=== PATIENT | female | born 1995 | race Caucasian/White ===

== ENCOUNTER 2016-04-23 16:41 | Emergency (ER) | payer SELFPAY ==
[~2016-04-23] VITALS: Ht 162.6 cm; Wt 74.8 kg
--- NOTE | 2016-04-23 18:59 | PHYS DOC ---
Past Medical History Past Medical History: Other Additional Past Medical Histor: hypoglycemic Past Surgical History: Other Additional Past Surgical Histo: right hip, lymph nodes left neck Alcohol Use: None Drug Use: None Adult General Chief Complaint Chief Complaint: VAGINAL BLEEDING HPI HPI Patient is a 20 year old female, 2 para 0 with an unknown last menstrual period, but a positive test approximate 7 weeks ago. Patient had Mirena removed approximately 2 weeks prior to that (9 weeks ago) who presents the emergency room today with complaint of vaginal bleeding for approximately 4 hours. Patient reports passage of some small clots but no evidence of tissue. Patient reports last intercourse was yesterday with no complications. Patient reports that she currently does not have an shot polisher and inspector/ treasury manager. She states that she's had a positive home test. Patient denies pelvic pain or pressure. She denies vaginal discharge. Patient denies history of genitourinary disease or surgeries. She stated that she had a miscarriage approximately 2 years ago without any complications or surgical intervention. Review of Systems Review of Systems Constitutional: Denies fever or chills [] Eyes: Denies change in visual acuity, redness, or eye pain [] HENT: Denies nasal congestion or sore throat [] Respiratory: Denies cough or shortness of breath [] Cardiovascular: No additional information not addressed in HPI [] GI: Denies abdominal pain, nausea, vomiting, bloody stools or diarrhea [] : Denies dysuria or hematuria [] Musculoskeletal: Denies back pain or joint pain [] Integument: Denies rash or skin lesions [] Neurologic: Denies headache, focal weakness or sensory changes [] Endocrine: Denies polyuria or polydipsia [] Current Medications Current Medications Current Medications Medications (Trade) Dose Ordered Sig/Shalonda Start Time Stop Time Status Last Admin Dose Admin Ondansetron HCl (Zofran Odt) 4 mg 1X ONCE 04/23/16 20:45 04/23/16 20:46 DC 04/23/16 20:34 4 MG Sodium Chloride (Iv Sodium Chloride 0.9% 500ml Bag) 500 ml @ 500 mls/hr 1X ONCE 04/23/16 19:00 04/23/16 19:59 DC 04/23/16 19:00 500 MLS/HR Allergies Allergies Allergies Coded Allergies Type Severity Reaction Last Updated Verified acetaminophen Allergy Intermediate 12/26/16 Yes codeine Allergy Intermediate 04/17/16 Yes naproxen Allergy Intermediate 04/17/16 Yes Physical Exam Physical Exam Constitutional: Well developed, well nourished, no acute distress, non-toxic appearance. [] HENT: Normocephalic, atraumatic, bilateral external ears normal, oropharynx moist, no oral exudates, nose normal. [] Eyes: PERRLA, EOMI, conjunctiva normal, no discharge. [] Neck: Normal range of motion, no tenderness, supple, no stridor. [] Cardiovascular:Heart rate regular rhythm, no murmur [] Lungs & Thorax: Bilateral breath sounds clear to auscultation [] Abdomen: Bowel sounds normal, soft, no tenderness, no masses, no pulsatile masses. Pelvic exam was performed with Romy Nuñez RN as electric gas appliances demonstrator and assistant associate professor: External genitalia is without any lesions or abnormalities. There is scant amount of dark blood in the vaginal vault. External os is closed. There are no blood clots or tissue in the vaginal vault. There is no active bleeding. There is no cervical motion tenderness or palpable adnexal masses or tenderness. Skin: Warm, dry, no erythema, no rash. [] Back: No tenderness, no CVA tenderness. [] Extremities: No tenderness, no cyanosis, no clubbing, ROM intact, no edema. [] Neurologic: Alert and oriented X 3, normal motor function, normal sensory function, no focal deficits noted. [] Psychologic: Affect normal, judgement normal, mood normal. [] Current Patient Data Vital Signs Vital Signs Date Time Temp Pulse Resp B/P Pulse Ox O2 Delivery O2 Flow Rate FiO2 04/23/16 20:41 98.1 76 16 105/60 98 Room Air 98.1 Lab Values Laboratory Tests Test 04/23/16 19:11 White Blood Count 8.2x10^3/uL (4.0-11.0) Red Blood Count 4.26x10^6/uL (3.50-5.40) Hemoglobin 13.4g/dL (12.0-15.5) Hematocrit 39.3% (36.0-47.0) Mean Corpuscular Volume 92fL (79-100) Mean Corpuscular Hemoglobin 31pg (25-35) Mean Corpuscular Hemoglobin Concent 34g/dL (31-37) Red Cell Distribution Width 13.4% (11.5-14.5) Platelet Count 230x10^3/uL (140-400) Neutrophils (%) (Auto) 67% (31-73) Lymphocytes (%) (Auto) 25% (24-48) Monocytes (%) (Auto) 6% (0-9) Eosinophils (%) (Auto) 1% (0-3) Basophils (%) (Auto) 1% (0-3) Neutrophils # (Auto) 5.5x10^3uL (1.8-7.7) Lymphocytes # (Auto) 2.1x10^3/uL (1.0-4.8) Monocytes # (Auto) 0.5x10^3/uL (0.0-1.1) Eosinophils # (Auto) 0.1x10^3/uL (0.0-0.7) Basophils # (Auto) 0.0x10^3/uL (0.0-0.2) Urine Collection Type Unknown Urine Color Yellow Urine Clarity Clear Urine pH 7.0 Urine Specific [place] 1.025 Urine Protein Negativemg/dL (NEG-TRACE) Urine Glucose (UA) Negativemg/dL (NEG) Urine Ketones (Stick) Negativemg/dL (NEG) Urine Blood Small (NEG) Urine Nitrite Negative (NEG) Urine Bilirubin Negative (NEG) Urine Urobilinogen Dipstick 0.2mg/dL (0.2 mg/dL) Urine Leukocyte Esterase Negative (NEG) Urine RBC 0/HPF (0-2) Urine WBC 0/HPF (0-4) Urine Squamous Epithelial Cells Mod/LPF Urine Amorphous Sediment Present/HPF Urine Bacteria 0/HPF (0-FEW) Urine Mucus Mod/LPF Maternal Serum HCG Beta Subunit 31104wIN/mL (0-6) H Laboratory Tests 04/23/16 19:11 Microbiology 04/23/16 Wet Prep - Final, Complete Microbiology 04/23/16 Wet Prep - Final, Complete EKG EKG [] Radiology/Procedures Radiology/Procedures PROCEDURE Ob ultrasound less than 14 weeks to include transabdominal and transvaginal imaging 04/23/2016 HISTORY First trimester of uncertain dates with vaginal bleeding. TECHNIQUE Using the distended urinary bladder as a sonographic window, a real-time ultrasound examination of the pelvis was performed. Additionally in an attempt to better evaluate the uterus and adnexa, a transvaginal ultrasound study was performed. Multiple images were obtained. FINDINGS A gestational sac is seen within the endometrial canal within the fundus/body of the uterus. Within this gestational sac a embryonic pole and associated yolk sac are seen. The CRL of this embryonic pole measures 3.7 millimeters. This corresponds to an estimated gestational age by ultrasound of 6 weeks 0 days +or minus a standard deviation of 4 days. Embryonic cardiac activity is seen with a heart rate of 93 beats per minute. The right ovary is normal in size and echogenicity. It measures 2.6 x 1.5 x 1.3 centimeters in size. The left ovary measures 2.6 x 2.2 x 2.0 centimeters in size. A 2 centimeter oval-shaped predominantly anechoic structure is seen within the left ovary which is consistent with a corpus luteum. No adnexal mass is seen. No free fluid is noted. IMPRESSION Single living IUP with an estimated gestational age by ultrasound of 6 weeks 0 days +or minus a standard deviation of 4 days. The estimated date of delivery by ultrasound is 12/17/2016. Electronically signed by: Chase Serrano MD (Apr 23, 2016 20:12:47) DICTATED and SIGNED BY: CHASE SERRANO MD DATE: 04/23/162011 CC: THADDEUS HO; CLEVELAND CARRIZALES MD ~ [] Course & Med Decision Making Course & Med Decision Making I was informed by Miss Savannah RN that the patient's Rh factor is negative. I called the blood bank and spoke to Doreen. Doreen informed me that she would put in the necessary orders for rhoGam per the blood bank protocol. Patient's blood type is A-. She received Auralgan here in the emergency department. Patient verbalizes understanding of ultrasound and laboratory test findings. She verbalizes understanding of the reason to see the RhoGAM. She verbalizes understanding for need for pelvic rest and to call for appointment with shot polisher and inspector in the morning. Patient verbalizes understanding of reasons to return to the emergency department. Dragon Disclaimer Dragon Disclaimer This electronic medical record was generated, in whole or in part, using a voice recognition dictation system. Departure Departure Impression: Primary Impression: Threatened miscarriage in early Disposition: 01 HOME, SELF-CARE Condition: GOOD Referrals: CLEVELAND CARRIZALES MD (PCP) BETTINA OVERTON MD Patient Instructions: RhoGAM, Threatened Miscarriage, [id number] Additional Instructions: 1. Even though the ultrasound and laboratory test today are reassuring, there is still the possibility of a miscarriage. 2. Read over your discharge instructions, especially for reasons to return to the emergency department. 3. Do not insert anything into your vagina. This includes intercourse. 4. Your blood type is A-. You received RhoGam here in the emergency Department today. 5. Either call the shot polisher and inspector that you're wanting to see or call the shot polisher and inspector listed in this discharge paperwork in the morning to schedule a follow-up appointment THADDEUS HO Apr 23, 2016 18:59
[2016-04-23] MEDS ORDERED: IV NORMAL SALINE 500ML BAG 500 ML IV ONE (19:00)
[2016-04-23 19:27] LABS: BASO % 1 % (0-3); BILIRUBIN,URINE NEGATIVE (NEG); EOS % 1 % (0-3); GLUCOSE,URINE NEGATIVE (NEG); HEMATOCRIT 39.3 % (36.0-47.0); HEMOGLOBIN 13.4 g/dL (12.0-15.5); LYMPH # 2.1 x10^3/uL (1.0-4.8); LYMPH % 25 % (24-48); MEAN CORPUSCULAR HEMOGLOBIN 31 pg (25-35); MEAN CORPUSCULAR HGB CONC 34 g/dL (31-37); MEAN CORPUSCULAR VOLUME 92 fL (79-100); MONO % 6 % (0-9); NEUT % 67 % (31-73); NITRITE,URINE NEGATIVE (NEG); PLATELET COUNT 230 x10^3/uL (140-400); PROTEIN,URINE NEGATIVE (NEG-TRACE); RED BLOOD COUNT 4.26 x10^6/uL (3.50-5.40); RED CELL DISTRIBUTION WIDTH 13.4 % (11.5-14.5); UROBILINOGEN,URINE 0.2 mg/dL (0.2 mg/dL); WHITE BLOOD COUNT 8.2 x10^3/uL (4.0-11.0)
[2016-04-23 19:35] LABS: RBC,URINE 0 /HPF (0-2)
[2016-04-23 19:36] LABS: BACTERIA,URINE 0 /HPF (0-FEW); SQUAMOUS EPITHELIAL CELL,UR MOD /LPF; WBC,URINE 0 /HPF (0-4)
--- NOTE | 2016-04-23 20:14 | RAD ---
PROCEDURE Ob ultrasound less than 14 weeks to include transabdominal and transvaginal imaging 04/23/2016 HISTORY First trimester of uncertain dates with vaginal bleeding. TECHNIQUE Using the distended urinary bladder as a sonographic window, a real-time ultrasound examination of the pelvis was performed. Additionally in an attempt to better evaluate the uterus and adnexa, a transvaginal ultrasound study was performed. Multiple images were obtained. FINDINGS A gestational sac is seen within the endometrial canal within the fundus/body of the uterus. Within this gestational sac a embryonic pole and associated yolk sac are seen. The CRL of this embryonic pole measures 3.7 millimeters. This corresponds to an estimated gestational age by ultrasound of 6 weeks 0 days +or minus a standard deviation of 4 days. Embryonic cardiac activity is seen with a heart rate of 93 beats per minute. The right ovary is normal in size and echogenicity. It measures 2.6 x 1.5 x 1.3 centimeters in size. The left ovary measures 2.6 x 2.2 x 2.0 centimeters in size. A 2 centimeter oval-shaped predominantly anechoic structure is seen within the left ovary which is consistent with a corpus luteum. No adnexal mass is seen. No free fluid is noted. IMPRESSION Single living IUP with an estimated gestational age by ultrasound of 6 weeks 0 days +or minus a standard deviation of 4 days. The estimated date of delivery by ultrasound is 12/17/2016. Electronically signed by: Chase Serrano MD (Apr 23, 2016 20:12:47)
[2016-04-23] MEDS ORDERED: ONDANSETRON ODT 4 MG TAB.RAPDIS PO ONE (20:45)
[2016-04-23 21:42] VITALS: BP 105/60
--- NOTE | 2016-04-25 07:54 | VNOTE ---
CALL BACK NOTE CALL BACK Microbiology 04/23/16 Wet Prep - Final, Complete 07:56Patient was positive for BV and not treated, called and left a voicemail 16:13 called her again, left a VM. TC MANCIA APRN Apr 25, 2016 07:53
== END 2016-04-23 22:15 | disposition home or self-care (01) ==
LOC: ER 16:41
DX: O20.0 Threatened abortion (principal); Z3A.01 Less than 8 weeks gestation of pregnancy; Z88.6 Allergy status to analgesic agent
CPT/HCPCS: 36415; 76801; 81001; 84702; 85027; 86850; 86900; 86901; 87491; 87591; 96360; 99285; J2791; J7040; Q0111; Q0162

== ENCOUNTER 2016-06-10 09:36 | Emergency (ER) | payer OTHER ==
[~2016-06-10] VITALS: Ht 162.6 cm; Wt 86.2 kg
--- NOTE | 2016-06-10 10:11 | PHYS DOC ---
Past Medical History Past Medical History: Other Additional Past Medical Histor: hypoglycemic Past Surgical History: Other Additional Past Surgical Histo: right hip, lymph nodes left neck Additional Information: Nonsmoker Alcohol Use: None Drug Use: Marijuana Adult General Chief Complaint Chief Complaint: ABDOMINAL PAIN IN [facility] HPI Patient is a 20 year old female who presents with low back pain. 2 days. Yesterday she began having stabbing pain in the pelvic region. She has had vaginal discharge and urinary frequency without dysuria or hematuria. She's had mild nausea and vomiting daily throughout her . She generally only vomits once in the morning. She denies vaginal bleeding or fevers. The patient was seen here on 04/23/16 and diagnosed with a threatened miscarriage. At that time, she was 6 weeks 0 days on ultrasound. She had pelvic swabs taken during that visit. She was found to have bacterial vaginosis but was not treated. We have attempted to contact her with those results without success. She was sent a certified letter, but states that she has not received the letter. Her mail this to her grandmother, who has been out of this state recently. She has seen her OB doctor. She states that she has not been treated with antibiotics for bacterial vaginosis. Her PCP is Dr. Carrizales. Her OB is Dr. Chao. She is . Review of Systems Review of Systems Constitutional: Denies fever or chills. [] GI: Denies bloody stools or diarrhea. Reports nausea, vomiting, and pelvic pain. : Denies dysuria, hematuria or vaginal bleeding. Reports vaginal discharge, urinary frequency, and pelvic pain. Musculoskeletal: Denies joint pain. Reports low-back pain. Integument: Denies rash or skin lesions. [] Neurologic: Denies headache, focal weakness or sensory changes. [] All systems reviewed and negative unless otherwise stated in the HPI. Allergies Allergies Allergies Coded Allergies Type Severity Reaction Last Updated Verified acetaminophen Allergy Intermediate 04/17/16 Yes codeine Allergy Intermediate 04/17/16 Yes naproxen Allergy Intermediate 04/17/16 Yes Physical Exam Physical Exam Constitutional: Well developed, well nourished, no acute distress, non-toxic appearance. [] HENT: Normocephalic, atraumatic, oropharynx moist. [] Eyes: PERRLA, EOMI, conjunctiva normal, no discharge. [] Neck: Normal range of motion, no tenderness, supple, no stridor. [] Cardiovascular: Heart rate regular rhythm, no murmur. [] Lungs & Thorax: Bilateral breath sounds clear to auscultation without wheezes, rales, or rhonchi. [] Abdomen: Bowel sounds normal, soft, suprapubic tenderness, no masses, no pulsatile masses. [] Female : ED RN jewel bearing turner present during exam. Normal external genitalia. There is white discharge in the vagina. There is no bleeding. There is no cervicitis. There is no CMT or adnexal tenderness on bimanual examination. The cervical os is closed. Skin: Warm, dry, no erythema, no rash. [] Back: No midline tenderness, no CVA tenderness. Bilateral lumbar paraspinal muscle tenderness. Extremities: No tenderness, ROM intact, no edema. Distal pulses equal bilaterally. [] Neurologic: Alert and oriented X 3, normal motor function, normal sensory function, no focal deficits noted. [] Psychologic: Affect normal, judgement normal, mood normal. [] Current Patient Data Vital Signs Vital Signs Date Time Temp Pulse Resp B/P Pulse Ox O2 Delivery O2 Flow Rate FiO2 06/10/16 10:00 98 72 20 111/58 98 Room Air 98.0 Lab Values Laboratory Tests Test 06/10/16 10:03 Urine Collection Type Unknown Urine Color Yellow Urine Clarity Clear Urine pH 7.5 Urine Specific [place] <=1.005 Urine Protein Negativemg/dL (NEG-TRACE) Urine Glucose (UA) Negativemg/dL (NEG) Urine Ketones (Stick) Negativemg/dL (NEG) Urine Blood Negative (NEG) Urine Nitrite Negative (NEG) Urine Bilirubin Negative (NEG) Urine Urobilinogen Dipstick 0.2mg/dL (0.2 mg/dL) Urine Leukocyte Esterase Trace (NEG) Urine RBC Occ/HPF (0-2) Urine WBC Occ/HPF (0-4) Urine Squamous Epithelial Cells Many/LPF Urine Bacteria Few/HPF (0-FEW) Microbiology 06/10/16 Wet Prep - Final, Complete Microbiology 06/10/16 Wet Prep - Final, Complete WET PREP Final YEAST NONE SEEN TRICHOMONAS NONE SEEN CLUE CELLS CLUE CELLS PRESENT ALTERED [place] ALTERED [place] PRESENT SUGGESTIVE OF BACTERIAL VAGINOSIS SQUAMOUS EPS MANY EKG EKG [] Radiology/Procedures Radiology/Procedures REASON: pelvic pain, 13 wks PROCEDURE: OB < 14 WKS Indication with pelvic pain. Early obstetrical ultrasound examination was performed. Note is made of a previous examination April 23, 2016. Transabdominal images were obtained. There is a single, viable, IUP. heart rate of 145 was documented. [place]-rump length of 6.5 cm is compatible with a gestational age of 12 weeks 6 days. By sonographic analysis the expected date of confinement is 12/17/2016. No complication is seen. The amount of amniotic fluid appears normal. A small hemorrhagic cyst is suggested associated with the left ovary IMPRESSION: Single intrauterine fetus of approximately 12 weeks 6 days gestation. Physiologic cyst associated with the left ovary Course & Med Decision Making Course & Med Decision Making Pertinent Labs and Imaging studies reviewed. (See chart for details) Patient is 13 weeks presents with low back pain and pelvic pain with vaginal discharge. She does not have any vaginal bleeding. On exam, there is discharge without bleeding. The os is closed. There are no concerning findings on ultrasound. Wet mount is positive for bacterial vaginosis, which was previously seen but untreated. Urine does not show infection. She is discharged home with prescription for Flagyl. She is instructed to follow-up with her OB doctor. Return precautions were discussed. She verbalizes understanding and agrees with plan. Dragon Disclaimer Dragon Disclaimer This electronic medical record was generated, in whole or in part, using a voice recognition dictation system. Departure Departure Impression: Primary Impression: Bacterial vaginosis Disposition: 01 HOME, SELF-CARE Condition: STABLE Referrals: CLEVELAND CARRIZALES MD (PCP) Patient Instructions: Abdominal Pain During , [id number], Bacterial Vaginosis, [id number] Additional Instructions: Your ultrasound today did not show any abnormalities. Your urine does not show any infection. You still have bacterial vaginosis because it was not treated previously. Please complete all the prescribed antibiotics. Please follow-up with your OB doctor within the next week. Return to the emergency department if you have increasing pain, fever, vaginal bleeding, or other new or concerning symptoms. Scripts Metronidazole (Flagyl)500 Mg Tablet1 Tab PO BID #14 TAB Prov:JOO GA 06/10/16 JOO GA Jun 10, 2016 10:11
--- NOTE | 2016-06-10 11:09 | RAD ---
Indication with pelvic pain. Early obstetrical ultrasound examination was performed. Note is made of a previous examination April 23, 2016. Transabdominal images were obtained. There is a single, viable, IUP. heart rate of 145 was documented. [place]-rump length of 6.5 cm is compatible with a gestational age of 12 weeks 6 days. By sonographic analysis the expected date of confinement is 12/17/2016. No complication is seen. The amount of amniotic fluid appears normal. A small hemorrhagic cyst is suggested associated with the left ovary IMPRESSION: Single intrauterine fetus of approximately 12 weeks 6 days gestation. Physiologic cyst associated with the left ovary
[2016-06-10 11:10] LABS: BILIRUBIN,URINE NEGATIVE (NEG); GLUCOSE,URINE NEGATIVE (NEG); NITRITE,URINE NEGATIVE (NEG); PH,URINE 7.5; PROTEIN,URINE NEGATIVE (NEG-TRACE); UROBILINOGEN,URINE 0.2 mg/dL (0.2 mg/dL)
[2016-06-10 11:36] LABS: BACTERIA,URINE FEW /HPF (0-FEW); RBC,URINE OCC /HPF (0-2); SQUAMOUS EPITHELIAL CELL,UR MANY /LPF; WBC,URINE OCC /HPF (0-4)
[2016-06-10] MEDS ORDERED: METR500T PO (11:49)
== END 2016-06-10 11:59 | disposition home or self-care (01) ==
LOC: ER 09:36
DX: O23.591 Infection of other part of genital tract in pregnancy, first trimester (principal); N76.0 Acute vaginitis; B96.89 Other specified bacterial agents as the cause of diseases classified elsewhere; Z3A.13 13 weeks gestation of pregnancy; O26.891 Other specified pregnancy related conditions, first trimester; F12.10 Cannabis abuse, uncomplicated; Z88.6 Allergy status to analgesic agent; Z88.5 Allergy status to narcotic agent
CPT/HCPCS: 76801; 81001; 87086; 87491; 87591; 99285; Q0111

== ENCOUNTER 2016-07-06 16:13 | Emergency (ER) | payer OTHER ==
[~2016-07-06] VITALS: Ht 162.6 cm; Wt 86.2 kg
[~2016-07-06 16:13] MED LIST: METR500T PO
[2016-07-06] MEDS ORDERED: IV NORMAL SALINE 1000ML BAG 1,000 ML IV SCH (16:48)
[2016-07-06] MEDS ORDERED: METOCLOPRAMIDE HCL 10 MG/2 ML VIAL. IV ONE (17:00)
[2016-07-06 17:04] LABS: BASO % 0 % (0-3); EOS % 3 % (0-3); HEMATOCRIT 40.4 % (36.0-47.0); HEMOGLOBIN 13.8 g/dL (12.0-15.5); LYMPH # 1.6 x10^3/uL (1.0-4.8); LYMPH % 24 % (24-48); MEAN CORPUSCULAR HEMOGLOBIN 31 pg (25-35); MEAN CORPUSCULAR HGB CONC 34 g/dL (31-37); MEAN CORPUSCULAR VOLUME 92 fL (79-100); MONO % 8 % (0-9); NEUT % 66 % (31-73); PLATELET COUNT 198 x10^3/uL (140-400); RED BLOOD COUNT 4.39 x10^6/uL (3.50-5.40); RED CELL DISTRIBUTION WIDTH 13.4 % (11.5-14.5); WHITE BLOOD COUNT 6.7 x10^3/uL (4.0-11.0)
[2016-07-06 17:06] LABS: BILIRUBIN,URINE NEGATIVE (NEG); GLUCOSE,URINE NEGATIVE (NEG); NITRITE,URINE NEGATIVE (NEG); PH,URINE 7.5; PROTEIN,URINE NEGATIVE (NEG-TRACE); UROBILINOGEN,URINE 0.2 mg/dL (0.2 mg/dL)
[2016-07-06 17:10] LABS: CREATININE 0.6 mg/dL (0.6-1.0); GFR 127.5; POTASSIUM 3.6 mmol/L (3.5-5.1)
[2016-07-06 17:16] LABS: ALBUMIN 3.3 g/dL (3.4-5.0); ALBUMIN/GLOBULIN RATIO 0.9 (1.0-1.7); TOTAL BILIRUBIN 0.3 mg/dL (0.2-1.0); TOTAL PROTEIN 7.1 g/dL (6.4-8.2)
--- NOTE | 2016-07-06 17:16 | PHYS DOC ---
Past Medical History Past Medical History: Other Additional Past Medical Histor: hypoglycemic Past Surgical History: Other Additional Past Surgical Histo: right hip, lymph nodes left neck Alcohol Use: None Drug Use: None Adult General Chief Complaint Chief Complaint: ABDOMINAL PAIN IN HPI HPI Patient is a 20 year old female who presents with lower abdominal cramping and setting of . Patient reports for the past 3 days she has been having nausea and vomiting, having trouble keeping down anything that she takes by mouth. The past 2 days she has had lower abdominal cramping. She denies vaginal bleeding, but does have copious vaginal discharge. She has been dizzy, which she thinks is because she hasn't been able to keep anything down by mouth. She has tried promethazine (which was prescribed by her ObGyn) as well as Tylenol for her symptoms with insufficient relief. She is ~17wks , . She did have an ultrasound about 4 weeks ago. Review of Systems Review of Systems Constitutional: Dizzy. Denies fever or chills Eyes: Denies change in visual acuity or eye pain HENT: Denies nasal congestion or sore throat Respiratory: Denies cough or shortness of breath Cardiovascular: Denies chest pain GI: Lower abdominal cramping, nausea/vomiting. Denies bloody stools or diarrhea : Vaginal discharge. Denies vaginal bleeding, dysuria, or hematuria Musculoskeletal: Denies back pain or joint pain Integument: Denies rash or skin lesions Neurologic: Denies headache, focal weakness or sensory changes Current Medications Current Medications Current Medications Medications (Trade) Dose Ordered Sig/Shalonda Start Time Stop Time Status Last Admin Dose Admin Metoclopramide HCl (Reglan) 10 mg 1X ONCE 07/06/16 17:00 07/06/16 17:01 DC 07/06/16 16:55 10 MG Sodium Chloride (Iv Sodium Chloride 0.9% 1000ml Bag) 1,000 ml @ 1,000 mls/hr Q1H 07/06/16 16:48 07/06/16 17:47 DC 07/06/16 16:53 1,000 MLS/HR Allergies Allergies Allergies Coded Allergies Type Severity Reaction Last Updated Verified acetaminophen Allergy Intermediate 04/17/16 Yes codeine Allergy Intermediate 04/17/16 Yes naproxen Allergy Intermediate 04/17/16 Yes Physical Exam Physical Exam Constitutional: Well developed, well nourished, no acute distress, non-toxic appearance HENT: Normocephalic, atraumatic, bilateral external ears normal Eyes: EOMI, conjunctiva normal, no discharge Neck: Normal range of motion, no stridor Cardiovascular: Heart rate normal, regular rhythm, no murmur Lungs & Thorax: Bilateral breath sounds clear to auscultation Abdomen: Bowel sounds normal, soft, non-distended, mild suprapubic TTP without guarding or rebound Pelvic: Moderate amount white discharge in vault, no blood, no CMT or adnexal TTP Skin: Warm, dry, no erythema, no rash Extremities: No obvious deformity, no edema Neurologic: Alert and oriented X 3, no gross deficits noted Current Patient Data Vital Signs Vital Signs Date Time Temp Pulse Resp B/P Pulse Ox O2 Delivery O2 Flow Rate FiO2 07/06/16 19:09 75 16 123/78 100 Room Air 07/06/16 16:16 97.9 97.9 Lab Values Laboratory Tests Test 07/06/16 15:32 07/06/16 16:33 POC Urine HCG, Qualitative Hcg positive (Negative) White Blood Count 6.7x10^3/uL (4.0-11.0) Red Blood Count 4.39x10^6/uL (3.50-5.40) Hemoglobin 13.8g/dL (12.0-15.5) Hematocrit 40.4% (36.0-47.0) Mean Corpuscular Volume 92fL (79-100) Mean Corpuscular Hemoglobin 31pg (25-35) Mean Corpuscular Hemoglobin Concent 34g/dL (31-37) Red Cell Distribution Width 13.4% (11.5-14.5) Platelet Count 198x10^3/uL (140-400) Neutrophils (%) (Auto) 66% (31-73) Lymphocytes (%) (Auto) 24% (24-48) Monocytes (%) (Auto) 8% (0-9) Eosinophils (%) (Auto) 3% (0-3) Basophils (%) (Auto) 0% (0-3) Neutrophils # (Auto) 4.4x10^3uL (1.8-7.7) Lymphocytes # (Auto) 1.6x10^3/uL (1.0-4.8) Monocytes # (Auto) 0.5x10^3/uL (0.0-1.1) Eosinophils # (Auto) 0.2x10^3/uL (0.0-0.7) Basophils # (Auto) 0.0x10^3/uL (0.0-0.2) Urine Color Yellow Urine Clarity Clear Urine pH 7.5 Urine Specific [place] 1.015 Urine Protein Negativemg/dL (NEG-TRACE) Urine Glucose (UA) Negativemg/dL (NEG) Urine Ketones (Stick) Negativemg/dL (NEG) Urine Blood Negative (NEG) Urine Nitrite Negative (NEG) Urine Bilirubin Negative (NEG) Urine Urobilinogen Dipstick 0.2mg/dL (0.2 mg/dL) Urine Leukocyte Esterase Trace (NEG) Urine RBC 0/HPF (0-2) Urine WBC 1-4/HPF (0-4) Urine Squamous Epithelial Cells Mod/LPF Urine Bacteria Few/HPF (0-FEW) Urine Mucus Mod/LPF Maternal Serum HCG Beta Subunit 98166mQO/mL (0-6) H Sodium Level 142mmol/L (136-145) Potassium Level 3.6mmol/L (3.5-5.1) Chloride Level 106mmol/L (98-107) Carbon Dioxide Level 24mmol/L (21-32) Anion Gap 12 (6-14) Blood Urea Nitrogen 7mg/dL (7-20) Creatinine 0.6mg/dL (0.6-1.0) Estimated GFR (Cockcroft-Gault) 127.5 BUN/Creatinine Ratio 12 (6-20) Glucose Level 80mg/dL (70-99) Calcium Level 9.0mg/dL (8.5-10.1) Total Bilirubin 0.3mg/dL (0.2-1.0) Aspartate Amino Transferase (AST) 49U/L (15-37) H Alanine Aminotransferase (ALT) 41U/L (14-59) Alkaline Phosphatase 74U/L (46-116) Total Protein 7.1g/dL (6.4-8.2) Albumin 3.3g/dL (3.4-5.0) L Albumin/Globulin Ratio 0.9 (1.0-1.7) L Laboratory Tests 07/06/16 16:33 Laboratory Tests 07/06/16 16:33 Microbiology 07/06/16 Wet Prep - Final, Complete EKG EKG [] Radiology/Procedures Radiology/Procedures [] Course & Med Decision Making Course & Med Decision Making Pertinent Labs and Imaging studies reviewed. (See chart for details) Patient is 20 year old female who presents with lower abdominal pain in the setting or . Has already had US done by ObGyn. Will obtain heart tones. Pelvic performed and swabs sent. Given c/o repeated vomiting, will check blood work as well. IV fluids, dose of reglan ordered for relief of nausea. FHR 152. Labs unremarkable. UA does show bacteria; although this does not appear to be UTI will cover for asymptomatic bacteriuria in with abx. Discussed results with patient, who is feeling better at this time. She has been able to tolerate PO fluids in the ED without difficulty or emesis. Will discharge with rx for macrobid and diclegis, instructions for follow up with ObGyn, and return precautions. Dragon Disclaimer Dragon Disclaimer This electronic medical record was generated, in whole or in part, using a voice recognition dictation system. Departure Departure Impression: Primary Impression: Abdominal pain during Additional Impressions: Nausea and vomiting during Bacteriuria during Disposition: HOME, SELF-CARE Condition: STABLE Referrals: CLEVELAND CARRIZALES MD (PCP) Patient Instructions: Abdominal Pain During Additional Instructions: Thank you for allowing us to provide care today in the Emergency Department. Take the provided medication as directed. Be aware that the nausea medication ( Diclegis) may make you drowsy. Schedule a follow up appointment with your primary care doctor. Return promptly to the Emergency Department if you develop any new or concerning symptoms. Scripts Doxylamine/Pyridoxine Hcl (Diclegis Dr 10-10 Mg Tablet)1 Each Tablet.dr1 Each PO BID PRN NAUSEA #20 Prov:SRINIVASAN ARDON MD 07/06/16 Nitrofurantoin Monohyd/M-Cryst (Macrobid 100 Mg Capsule)100 Mg Capsule1 Cap PO BID #10 CAP Prov:SRINIVASAN ARDON MD 07/06/16 Problem Qualifiers SRINIVASAN ARDON MD Jul 06, 2016 17:16
[2016-07-06 17:18] LABS: BACTERIA,URINE FEW /HPF (0-FEW); RBC,URINE 0 /HPF (0-2); SQUAMOUS EPITHELIAL CELL,UR MOD /LPF
[2016-07-06] MEDS ORDERED: NITR100C62 PO (18:39)
[2016-07-06] MEDS ORDERED: DOXY1TAB3 PO (18:39)
[2016-07-06 19:09] VITALS: BP 123/78
== END 2016-07-06 19:18 | disposition home or self-care (01) ==
LOC: ER 16:13
DX: O26.892 Other specified pregnancy related conditions, second trimester (principal); R10.9 Unspecified abdominal pain; R11.2 Nausea with vomiting, unspecified; R82.71 Bacteriuria; Z3A.17 17 weeks gestation of pregnancy; Z88.5 Allergy status to narcotic agent; Z88.6 Allergy status to analgesic agent; Z88.8 Allergy status to other drugs, medicaments and biological substances
CPT/HCPCS: 36415; 80053; 81001; 81025; 84702; 85027; 87086; 87491; 87591; 96361; 96374; 99284; J2765; J7030; Q0111

== ENCOUNTER 2016-07-26 19:29 | Emergency (ER) | payer OTHER ==
[~2016-07-26 19:29] MED LIST changes: +DOXY1TAB3 PO; +NITR100C62 PO
[2016-07-26 20:13] VITALS: BP 105/63
[2016-07-26 20:21] LABS: BILIRUBIN,URINE NEGATIVE (NEG); GLUCOSE,URINE NEGATIVE (NEG); NITRITE,URINE NEGATIVE (NEG); PH,URINE 7.5; PROTEIN,URINE NEGATIVE (NEG-TRACE)
[2016-07-26 20:26] LABS: BACTERIA,URINE FEW /HPF (0-FEW); RBC,URINE 0 /HPF (0-2); SQUAMOUS EPITHELIAL CELL,UR MANY /LPF
--- NOTE | 2016-07-26 20:52 | PHYS DOC ---
Past Medical History Past Medical History: Other Additional Past Medical Histor: hypoglycemic, carrage 2 yrs ago Past Surgical History: Other Additional Past Surgical Histo: right hip, lymph nodes left neck Alcohol Use: None Drug Use: None Adult General Chief Complaint Chief Complaint: ABDOMINAL PAIN IN HPI HPI Patient is a 20 year old female who states she is 19 weeks 3 days who presents with multiple complaints and concerns. The patient states last night when she urinated and wiped she saw a little blood. She wasn't exactly sure where it was from that she thought it was related to her urine. She has had some feeling of difficulty with urination, not dysuria, but feeling more like it is hard to completely empty her bladder. She also believes that she's had decreased activity for the past 2 nights. Usually when she lays down at night she feels a lot of movement but for the past 2 nights she hasn't felt very much. She also has noted some discomfort on the right side of her abdomen/ pelvis, along the right side of her uterus, for 2-3 days. No pain on the left side. She did have nausea and vomiting during her first trimester but that has cleared up. The patient was getting care from 1 OB doctor but she was unhappy that that doctor was not doing ultrasounds and so she has switched and has an appointment coming up at 22 weeks with a new OB doctor. She also has had some low back pain and "got stuck on the toilet" because her back "went out on her" when she was sitting on the toilet. She has had some general aches and pains in the pelvic girdle. OB Dr. Lyons at [facility] Patient is 2 with a miscarriage at about 4 weeks gestation during her previous . Review of Systems Review of Systems Constitutional: She has felt feverish but not checked her temperature Eyes: Denies change in visual acuity, redness, or eye pain [] HENT: Denies nasal congestion or sore throat [] Respiratory: Denies cough or shortness of breath [] Cardiovascular: Denies chest pain GI: As in history of present illness : As in history of present illness Musculoskeletal: Back pain as in history of present illness Integument: Denies rash or skin lesions [] Neurologic: Denies headache, focal weakness or sensory changes [] Allergies Allergies Allergies Coded Allergies Type Severity Reaction Last Updated Verified acetaminophen Allergy Intermediate 04/17/16 Yes codeine Allergy Intermediate 04/17/16 Yes naproxen Allergy Intermediate 04/17/16 Yes Physical Exam Physical Exam Constitutional: Well developed, well nourished, no acute distress, non-toxic appearance. [] HENT: Normocephalic, atraumatic, bilateral external ears normal, nose normal. [ ] Eyes: conjunctiva normal, no discharge. [] Neck: Normal range of motion, no stridor. [] Abdomen: Gravid, uterus size consistent with 19 weeks, no upper abdominal tenderness, mild tenderness along the right side of the uterus consistent with round ligament tenderness, no rebound or guarding, no tenderness on the left side of the uterus, overall abdomen exam is very benign Skin: Warm, dry, no erythema, no rash. [] Extremities: No tenderness, no cyanosis, no clubbing, ROM intact, no edema. [] Neurologic: Alert and oriented X 3, normal motor function, normal sensory function, no focal deficits noted. [] Current Patient Data Vital Signs Vital Signs Date Time Temp Pulse Resp B/P Pulse Ox O2 Delivery O2 Flow Rate FiO2 07/26/16 19:38 97.9 102 18 108/68 100 Room Air 97.9 Lab Values Laboratory Tests Test 07/26/16 19:01 07/26/16 19:55 POC Urine HCG, Qualitative Hcg positive (Negative) Urine Collection Type Unknown Urine Color Yellow Urine Clarity Clear Urine pH 7.5 Urine Specific [place] 1.015 Urine Protein Negativemg/dL (NEG-TRACE) Urine Glucose (UA) Negativemg/dL (NEG) Urine Ketones (Stick) Negativemg/dL (NEG) Urine Blood Negative (NEG) Urine Nitrite Negative (NEG) Urine Bilirubin Negative (NEG) Urine Urobilinogen Dipstick 1.0mg/dL (0.2 mg/dL) Urine Leukocyte Esterase Large (NEG) Urine RBC 0/HPF (0-2) Urine WBC 1-4/HPF (0-4) Urine Squamous Epithelial Cells Many/LPF Urine Bacteria Few/HPF (0-FEW) EKG EKG [] Radiology/Procedures Radiology/Procedures [] Course & Med Decision Making Course & Med Decision Making Pertinent Labs and Imaging studies reviewed. (See chart for details) 20-year-old female 19 weeks 3 days by dates with multiple complaints including she might have seen some blood in her urine and also some discomfort along the right side of her uterus with decreased activity for 2 days. Urinalysis negative for UTI, culture was ordered. heart tones done by RN with me at the bedside were 144. I have ordered an ultrasound due to the complaint of decreased activity. Ultrasound is completed but the results per radiologist is pending at change of shift. I have asked Dr. Jones to check ultrasound results and discharge the patient if it is unremarkable. [] Dragon Disclaimer Dragon Disclaimer This electronic medical record was generated, in whole or in part, using a voice recognition dictation system. Departure Departure Impression: Primary Impression: Abdominal pain during Disposition: HOME, SELF-CARE Condition: STABLE Referrals: CLEVELAND CARRIZALES MD (PCP) Patient Instructions: Round Ligament Pain Additional Instructions: As we discussed, I urge you to quit smoking altogether. Even smoking a little bit is not good for your baby and also after your baby is born you should not be smoking. Keep your appointment with your new OB doctor as planned, rest and don't overdo it as far as any activity, lifting, etc. RUPA VAN MD Jul 26, 2016 20:52
--- NOTE | 2016-07-26 22:41 | RAD ---
PROCEDURE Limited OB ultrasound greater than 14 weeks 07/26/2016 HISTORY Second trimester with decreased movement for 2 days. TECHNIQUE A real-time ultrasound examination of the gravid uterus was performed. Multiple images were obtained. FINDINGS Comparison study is dated 04/23/2016. There is a single living IUP. The fetus is in a breech position. cardiac and somatic activity is seen. The placenta is anterior. No abnormality of the placenta is seen. The amniotic fluid volume is within normal limits. The right heart rate is 133 beats per minute. The maternal cervix is closed. It measures 3.54 centimeters in length. Neither maternal ovary is visualized. The following measurements were obtained: BPD 4.12 centimeters 18 weeks 3 days HC 16.78 centimeters 19 weeks 3 days AC 13.49 centimeters 19 weeks 0 days FL 3.21 centimeters 20 weeks 0 days The estimated gestational age by ultrasound is 19 weeks 2 days plus or minus a standard deviation of 10 days. The estimated date of delivery by ultrasound on today's study is 12/18/2016. Since previous examination there has been appropriate interval growth. Detailed evaluation of anatomy was not performed. The heart, kidneys, stomach, lateral ventricles, cerebellum spine, three-vessel umbilical cord, abdominal cord insertion, all 4 extremities and urinary bladder are well visualized and are within normal limits. IMPRESSION Single living IUP with an estimated gestational age by ultrasound 19 weeks 2 days plus or minus a standard deviation of 10 days. Since the previous examination there has been appropriate interval growth. Electronically signed by: Chase Serrano MD (Jul 26, 2016 22:39:45)
== END 2016-07-26 22:58 | disposition home or self-care (01) ==
LOC: ER 19:29
DX: O26.892 Other specified pregnancy related conditions, second trimester (principal); R10.9 Unspecified abdominal pain; O99.89 Other specified diseases and conditions complicating pregnancy, childbirth and the puerperium; M54.5 Low back pain; Z3A.19 19 weeks gestation of pregnancy; Z88.5 Allergy status to narcotic agent; Z88.6 Allergy status to analgesic agent
CPT/HCPCS: 76805; 81001; 81025; 84703; 87086; 99285-25

== ENCOUNTER 2017-06-17 15:16 | Emergency (ER) | payer OTHER ==
[2017-06-17 16:13] LABS: URINE HCG POC HCG NEGATIVE (Negative)
[2017-06-17 16:16] LABS: ADD MAN DIFF? NO
[2017-06-17 16:18] LABS: BASO # 0.1 x10^3/uL (0.0-0.2); BASO % 1 % (0-3); EOS # 0.2 x10^3/uL (0.0-0.7); EOS % 3 % (0-3); HEMATOCRIT 36.8 % (36.0-47.0); HEMOGLOBIN 12.2 g/dL (12.0-15.5); LYMPH # 2.5 x10^3/uL (1.0-4.8); LYMPH % 38 % (24-48); MEAN CORPUSCULAR HEMOGLOBIN 27 pg (25-35); MEAN CORPUSCULAR HGB CONC 33 g/dL (31-37); MEAN CORPUSCULAR VOLUME 80 fL (79-100); MONO # 0.4 x10^3/uL (0.0-1.1); MONO % 6 % (0-9); NEUT # 3.5 x10^3uL (1.8-7.7); NEUT % 52 % (31-73); PLATELET COUNT 269 x10^3/uL (140-400); RED BLOOD COUNT 4.59 x10^6/uL (3.50-5.40); RED CELL DISTRIBUTION WIDTH 18.6 % (11.5-14.5); WHITE BLOOD COUNT 6.7 x10^3/uL (4.0-11.0)
[2017-06-17 16:21] LABS: BILIRUBIN,URINE NEGATIVE (NEG); COLOR,URINE YELLOW; GLUCOSE,URINE NEGATIVE (NEG); NITRITE,URINE NEGATIVE (NEG); PROTEIN,URINE NEGATIVE (NEG-TRACE); UROBILINOGEN,URINE 0.2 mg/dL (0.2 mg/dL)
[2017-06-17 16:29] LABS: BARBITURATES NEG (NEG); BENZODIAZEPINES POS (NEG); CANNABINOIDS NEG (NEG); COCAINE NEG (NEG); METHADONE NEG (NEG); OPIATES NEG (NEG); PHENCYCLIDINE NEG (NEG)
[2017-06-17 16:35] LABS: AMPHETAMINE/METHAMPHETAMINE NEG (NEG); ETHANOL, URINE NEG (NEG)
[2017-06-17] MEDS: IV NORMAL SALINE 1000ML BAG 1,000 ML IV ×2 (16:37)
[2017-06-17 16:39] LABS: D-DIMER 0.34 ug/mlFEU (0.00-0.50)
[2017-06-17 16:42] LABS: ANION GAP 6 (6-14); BLOOD UREA NITROGEN 10 mg/dL (7-20); BUN/CREATININE RATIO 8 (6-20); CALCIUM 8.8 mg/dL (8.5-10.1); CARBON DIOXIDE 31 mmol/L (21-32); CHLORIDE 108 mmol/L (98-107); CLARITY,URINE HAZY; CREATININE 1.2 mg/dL (0.6-1.0); GFR 56.7; GLUCOSE 85 mg/dL (70-99); POTASSIUM 4.1 mmol/L (3.5-5.1); SODIUM 145 mmol/L (136-145)
[2017-06-17 16:45] LABS: AMORPHOUS SEDIMENT,UR PRESENT /HPF; BACTERIA,URINE FEW /HPF (0-FEW); RBC,URINE 0 /HPF (0-2); SQUAMOUS EPITHELIAL CELL,UR MANY /LPF; WBC,URINE 0 /HPF (0-4)
[2017-06-17 16:46] LABS: ALBUMIN 3.4 g/dL (3.4-5.0); ALK PHOS 116 U/L (46-116); ALT (SGPT) 28 U/L (14-59); AST (SGOT) 35 U/L (15-37); TOTAL BILIRUBIN 0.1 mg/dL (0.2-1.0); TOTAL PROTEIN 6.9 g/dL (6.4-8.2)
[2017-06-17 16:47] LABS: ETHANOL < 10 mg/dL (0-10)
[2017-06-17 16:51] LABS: TROPONINI < 0.017 ng/mL (0.000-0.055)
== END 2017-06-17 18:26 | disposition home or self-care (01) ==
LOC: ER 15:16
DX: R53.1 Weakness (principal); R53.83 Other fatigue; F90.9 Attention-deficit hyperactivity disorder, unspecified type; Z88.5 Allergy status to narcotic agent; Z88.6 Allergy status to analgesic agent
CPT/HCPCS: 36415; 71046; 80053; 80307; 81001; 81025; 84484; 85025; 85379; 93005; 96361; 96374; 99285-25; G0480; J2060; J7030

== ENCOUNTER 2018-01-22 09:44 | Emergency (ER) | payer OTHER ==
[~2018-01-22] VITALS: Ht 162.6 cm; Wt 93.0 kg
[2018-01-22 10:11] LABS: BILIRUBIN,URINE NEGATIVE (NEG); CLARITY,URINE CLOUDY; COLOR,URINE YELLOW; NITRITE,URINE NEGATIVE (NEG); PH,URINE 6.5; PROTEIN,URINE NEGATIVE (NEG-TRACE); UROBILINOGEN,URINE 0.2 mg/dL (0.2 mg/dL)
[2018-01-22] MEDS ORDERED: ONDANSETRON PF 4 MG/2 ML VIAL. IV ONE (10:15)
[2018-01-22 10:24] LABS: BACTERIA,URINE MANY /HPF (0-FEW); RBC,URINE OCC /HPF (0-2); SQUAMOUS EPITHELIAL CELL,UR MOD /LPF
--- NOTE | 2018-01-22 10:26 | PHYS DOC ---
Past Medical History Past Medical History: Anxiety, Depression, Other Additional Past Medical Histor: hypoglycemic, misscarrage 2 yrs ago, ADHD Past Surgical History: Other Additional Past Surgical Histo: right hip, lymph nodes left neck Alcohol Use: Occasionally Drug Use: None Adult General Chief Complaint Chief Complaint: ABDOMINAL PAIN IN [facility] HPI Patient is a 22 year old female whom is 17 weeks presents to the ED complaining of abdominal cramping x 1 day. Patient is . States she woke up and started to have lower abdominal cramping. Patient states she has not followed up with an [facility] yet. States her insurance has not come through yet. Denies vaginal bleeding/discharge, headache, vomiting, diarrhea, chest pain, dysuria, hematuria, shortness of breath or fever. Review of Systems Review of Systems Constitutional: Denies fever or chills [] Eyes: Denies change in visual acuity, redness, or eye pain [] HENT: Denies nasal congestion or sore throat [] Respiratory: Denies cough or shortness of breath [] Cardiovascular: No additional information not addressed in HPI [] GI: Complains of abdominal pain and nausea. Denies vomiting, bloody stools or diarrhea [] : Denies dysuria or hematuria [] Musculoskeletal: Denies back pain or joint pain [] Integument: Denies rash or skin lesions [] Neurologic: Denies headache, focal weakness or sensory changes [] All other systems were reviewed and found to be within normal limits, except as documented in this note. Current Medications Current Medications Current Medications Medications (Trade) Dose Ordered Sig/Shalonda Start Time Stop Time Status Last Admin Dose Admin Ceftriaxone Sodium 50 ml @ 100 mls/hr 1X ONCE 01/22/18 11:30 01/22/18 11:59 DC 01/22/18 11:36 100 MLS/HR Ondansetron HCl (Zofran) 4 mg 1X ONCE 01/22/18 10:15 01/22/18 10:16 DC 01/22/18 11:36 4 MG Sodium Chloride 1,000 ml @ 1,000 mls/hr 1X ONCE 01/22/18 11:45 01/22/18 12:44 DC 01/22/18 11:37 1,000 MLS/HR Allergies Allergies Allergies Coded Allergies Type Severity Reaction Last Updated Verified acetaminophen Allergy Intermediate 04/17/16 Yes codeine Allergy Intermediate 04/17/16 Yes naproxen Allergy Intermediate 04/17/16 Yes Physical Exam Physical Exam Constitutional: Well developed, well nourished, no acute distress, non-toxic appearance. [] HENT: Normocephalic, atraumatic, oropharynx moist Eyes: PERRLA, EOMI, conjunctiva normal, no discharge. [] Neck: Normal range of motion, no tenderness, supple, no stridor. [] Cardiovascular:Heart rate regular rhythm, no murmur [] Lungs & Thorax: Bilateral breath sounds clear to auscultation [] Abdomen: Bowel sounds normal, soft, no tenderness, no masses, no pulsatile masses. [] : Refused Skin: Warm, dry, no erythema, no rash. [] Back: No tenderness, no CVA tenderness. [] Extremities: No tenderness, no cyanosis, no clubbing, ROM intact, no edema. [] Neurologic: Alert and oriented X 3, normal motor function, normal sensory function, no focal deficits noted. [] Psychologic: Affect normal, judgement normal, mood normal. [] Current Patient Data Vital Signs Vital Signs Date Time Temp Pulse Resp B/P (MAP) Pulse Ox O2 Delivery O2 Flow Rate FiO2 01/22/18 14:00 74 18 98/62 (74) 99 Room Air 01/22/18 09:55 98.4 98.4 Lab Values Laboratory Tests Test 01/22/18 09:55 01/22/18 10:07 01/22/18 10:10 01/22/18 10:45 Urine Collection Type Unknown Urine Color Yellow Urine Clarity Cloudy Urine pH 6.5 Urine Specific [place] 1.025 Urine Protein Negative mg/dL (NEG-TRACE) Urine Glucose (UA) Negative mg/dL (NEG) Urine Ketones (Stick) 15 mg/dL (NEG) Urine Blood Negative (NEG) Urine Nitrite Negative (NEG) Urine Bilirubin Negative (NEG) Urine Urobilinogen Dipstick 0.2 mg/dL (0.2 mg/dL) Urine Leukocyte Esterase Large (NEG) Urine RBC Occ /HPF (0-2) Urine WBC 11-20 /HPF (0-4) Urine Squamous Epithelial Cells Mod /LPF Urine Bacteria Many /HPF (0-FEW) POC Urine HCG, Qualitative Hcg positive (Negative) White Blood Count 7.7 x10^3/uL (4.0-11.0) Red Blood Count 4.31 x10^6/uL (3.50-5.40) Hemoglobin 13.4 g/dL (12.0-15.5) Hematocrit 38.5 % (36.0-47.0) Mean Corpuscular Volume 90 fL (79-100) Mean Corpuscular Hemoglobin 31 pg (25-35) Mean Corpuscular Hemoglobin Concent 35 g/dL (31-37) Red Cell Distribution Width 14.9 % (11.5-14.5) H Platelet Count 231 x10^3/uL (140-400) Neutrophils (%) (Auto) 76 % (31-73) H Lymphocytes (%) (Auto) 18 % (24-48) L Monocytes (%) (Auto) 4 % (0-9) Eosinophils (%) (Auto) 2 % (0-3) Basophils (%) (Auto) 0 % (0-3) Neutrophils # (Auto) 5.8 x10^3uL (1.8-7.7) Lymphocytes # (Auto) 1.4 x10^3/uL (1.0-4.8) Monocytes # (Auto) 0.3 x10^3/uL (0.0-1.1) Eosinophils # (Auto) 0.1 x10^3/uL (0.0-0.7) Basophils # (Auto) 0.0 x10^3/uL (0.0-0.2) Maternal Serum HCG Beta Subunit 71911 mIU/mL (0-5) H Sodium Level 141 mmol/L (136-145) Potassium Level 3.8 mmol/L (3.5-5.1) Chloride Level 107 mmol/L (98-107) Carbon Dioxide Level 25 mmol/L (21-32) Anion Gap 9 (6-14) Blood Urea Nitrogen 8 mg/dL (7-20) Creatinine 0.5 mg/dL (0.6-1.0) L Estimated GFR (Cockcroft-Gault) 154.3 BUN/Creatinine Ratio 16 (6-20) Glucose Level 76 mg/dL (70-99) Calcium Level 8.6 mg/dL (8.5-10.1) Total Bilirubin 0.3 mg/dL (0.2-1.0) Aspartate Amino Transferase (AST) 23 U/L (15-37) Alanine Aminotransferase (ALT) 18 U/L (14-59) Alkaline Phosphatase 84 U/L (46-116) Total Protein 5.8 g/dL (6.4-8.2) L Albumin 2.7 g/dL (3.4-5.0) L Albumin/Globulin Ratio 0.9 (1.0-1.7) L Laboratory Tests 01/22/18 10:10 Laboratory Tests 01/22/18 10:45 EKG EKG [] Radiology/Procedures Radiology/Procedures PROCEDURE: PREG MORE THAN OR EQ TO 14 WKS PREG MORE THAN OR EQ TO 14 WKS History: Abdominal pain in Comparison: There is no previous relevant exam available. Findings: Multiple transabdominal sonographic images of the pelvis and uterus are submitted. Cervix measured 3.1 cm. There is anterior and fundal placenta. Amniotic fluid volume is within normal limits. There is breech presentation of the single intrauterine fetus. heart rate was 145 bpm. Biometry data are as follows: Biparietal diameter 3.58 cm corresponding 17 weeks 0 days Head circumference 13.94 cm corresponds with 17 weeks 2 days Abdominal circumference 11.86 cm corresponds 17 weeks 4 days Femur length 2.38 cm corresponds with 17 weeks 1 day HC/AC ratio 1.18 within normal limits Estimated weight 192 g +/- 20 8 g Adjusted ultrasound age 17 weeks 2 days with estimated delivery date of 06/30/2018. LMP age 17 weeks 0 days with estimated delivery date of 07/02/2018. Maternal adnexal regions are not demonstrated. anatomy is not fully evaluated on this exam. Impression: 1. There is a single viable intrauterine fetus in breech presentation. Adjusted ultrasound age is 17 weeks 2 days with estimated delivery of 06/30/2018.[] Course & Med Decision Making Course & Med Decision Making Pertinent Labs and Imaging studies reviewed. (See chart for details) []Discussed lab and imaging findings with patient. Patient's abdominal pain resolved. On re-examination, abdomen is soft nontender nondistended. No peritoneal signs. Tolerating by mouth. Discussed follow-up with [facility] outpatient this week. Provided contact information/education. Discussed reasons to return to the ED. Patient understands and agrees with plan. Provided clinic and community resource handout. Will treat for UTI with macrobid. Guille Disclaimer Guille Disclaimer This electronic medical record was generated, in whole or in part, using a voice recognition dictation system. Departure Departure Impression: Primary Impression: Abdominal pain during Additional Impression: Urinary tract infection Disposition: 01 HOME, SELF-CARE Condition: IMPROVED Referrals: SELAM LING MD (PCP) Patient Instructions: Abdominal Pain During Scripts Nitrofurantoin Monohyd/M-Cryst (MACROBID 100 MG CAPSULE) 100 Mg Capsule 1 CAP PO BID for 7 Days, #14 CAP Prov: XOCHITL RICHARD 01/22/18 Problem Qualifiers XOCHITL RICHARD Jan 22, 2018 10:26
[2018-01-22 10:35] LABS: BASO % 0 % (0-3); EOS # 0.1 x10^3/uL (0.0-0.7); EOS % 2 % (0-3); HEMATOCRIT 38.5 % (36.0-47.0); HEMOGLOBIN 13.4 g/dL (12.0-15.5); LYMPH # 1.4 x10^3/uL (1.0-4.8); LYMPH % 18 % (24-48); MEAN CORPUSCULAR HEMOGLOBIN 31 pg (25-35); MEAN CORPUSCULAR HGB CONC 35 g/dL (31-37); MEAN CORPUSCULAR VOLUME 90 fL (79-100); MONO # 0.3 x10^3/uL (0.0-1.1); MONO % 4 % (0-9); NEUT # 5.8 x10^3uL (1.8-7.7); NEUT % 76 % (31-73); PLATELET COUNT 231 x10^3/uL (140-400); RED BLOOD COUNT 4.31 x10^6/uL (3.50-5.40); RED CELL DISTRIBUTION WIDTH 14.9 % (11.5-14.5); WHITE BLOOD COUNT 7.7 x10^3/uL (4.0-11.0)
[2018-01-22 11:14] LABS: ALBUMIN 2.7 g/dL (3.4-5.0); ALBUMIN/GLOBULIN RATIO 0.9 (1.0-1.7); CALCIUM 8.6 mg/dL (8.5-10.1); CREATININE 0.5 mg/dL (0.6-1.0); GFR 154.3; POTASSIUM 3.8 mmol/L (3.5-5.1); TOTAL BILIRUBIN 0.3 mg/dL (0.2-1.0); TOTAL PROTEIN 5.8 g/dL (6.4-8.2)
[2018-01-22] MEDS ORDERED: IV NORMAL SALINE 1000ML BAG 1,000 ML IV ONE (11:45)
--- NOTE | 2018-01-22 13:40 | RAD ---
PREG MORE THAN OR EQ TO 14 WKS History: Abdominal pain in Comparison: There is no previous relevant exam available. Findings: Multiple transabdominal sonographic images of the pelvis and uterus are submitted. Cervix measured 3.1 cm. There is anterior and fundal placenta. Amniotic fluid volume is within normal limits. There is breech presentation of the single intrauterine fetus. heart rate was 145 bpm. Biometry data are as follows: Biparietal diameter 3.58 cm corresponding 17 weeks 0 days Head circumference 13.94 cm corresponds with 17 weeks 2 days Abdominal circumference 11.86 cm corresponds 17 weeks 4 days Femur length 2.38 cm corresponds with 17 weeks 1 day HC/AC ratio 1.18 within normal limits Estimated weight 192 g +/- 20 8 g Adjusted ultrasound age 17 weeks 2 days with estimated delivery date of 06/30/2018. LMP age 17 weeks 0 days with estimated delivery date of 07/02/2018. Maternal adnexal regions are not demonstrated. anatomy is not fully evaluated on this exam. Impression: 1. There is a single viable intrauterine fetus in breech presentation. Adjusted ultrasound age is 17 weeks 2 days with estimated delivery of 06/30/2018. Electronically signed by: Yovanny Hernandez MD (01/22/2018 1:36 PM) [id number]
[2018-01-22] MEDS ORDERED: NITR100C62 PO (13:53)
[2018-01-22 14:00] VITALS: BP 98/62
== END 2018-01-22 14:38 | disposition home or self-care (01) ==
LOC: ER 09:44
DX: O23.42 Unspecified infection of urinary tract in pregnancy, second trimester (principal); O99.342 Other mental disorders complicating pregnancy, second trimester; F41.8 Other specified anxiety disorders; R10.30 Lower abdominal pain, unspecified; Z3A.17 17 weeks gestation of pregnancy; Z88.5 Allergy status to narcotic agent; Z88.8 Allergy status to other drugs, medicaments and biological substances
CPT/HCPCS: 36415; 76805; 80053; 81001; 81025; 84702; 85025; 86900; 86901; 96365; 96375; 99285; J0690; J2405; J7030

== ENCOUNTER 2018-02-21 09:44 | Observation (INO) | payer OTHER ==
[2018-02-21 10:59] LABS: AMNIO PT NEGATIVE
[2018-02-21 11:19] LABS: BILIRUBIN,URINE NEGATIVE (NEG); CLARITY,URINE CLEAR; COLOR,URINE YELLOW; NITRITE,URINE NEGATIVE (NEG); PROTEIN,URINE NEGATIVE (NEG-TRACE)
[2018-02-21 11:44] LABS: BACTERIA,URINE MODERATE /HPF (0-FEW); SQUAMOUS EPITHELIAL CELL,UR MANY /LPF
== END 2018-02-21 12:50 | disposition home or self-care (01) ==
LOC: 3 SO LND 09:44
PROVIDERS: ADMIT Family Medicine; ATTEND Family Medicine
DX: O26.852 Spotting complicating pregnancy, second trimester (principal); O26.892 Other specified pregnancy related conditions, second trimester; R10.9 Unspecified abdominal pain; O99.89 Other specified diseases and conditions complicating pregnancy, childbirth and the puerperium; M54.9 Dorsalgia, unspecified; Z3A.21 21 weeks gestation of pregnancy
CPT/HCPCS: 36415; 81001; 84112; 87086; G0378; G0379

== ENCOUNTER → 2018-03-08 | Outpatient (CLI) | payer OTHER ==
--- NOTE | 2018-03-08 18:10 | KCIC ---
PREG MORE THAN OR EQ TO 14 WKS History: Anatomical scan Comparison: January 30, 2018 Findings: Multiple sonographic images of the uterus are submitted. Cervix measured 5.7 cm in length. There is a single intrauterine fetus in cephalic presentation. There is midline cord insertion. bladder, stomach, and 2 kidneys were visualized. There is no obvious abnormality of the visualized spine. There is four-chamber view of the heart. There is apparently a three-vessel cord. There is anterior and fundal placenta. Amniotic fluid volume is subjectively within normal limits, estimated DONNA 15.3 cm. Biometry data are as follows: Biparietal diameter 5.59 corresponds 23 weeks 2 days 21st percentile Head circumference 20.99 cm corresponds with 23 weeks 0 days 13 percentile Abdominal circumference 18.56 cm corresponds with 23 weeks 2 days. 30th percentile Femur length 4.06 cm corresponds with 23 weeks 1 day 21st percentile HC/AC ratio within normal limits 1.13 Adjusted ultrasound age 23 weeks 1 day with estimated delivery date of 07/04/2018. LMP age is 23 weeks 5 days with estimated delivery date of 06/30/2018. There is slight difference in the growth parameters for today's versus previous exam as previously estimated delivery date by ultrasound 06/30/2018. Estimated weight 575 g +/- 85 g corresponding with the 35th percentile. Impression: 1. There is a single viable intrauterine fetus in cephalic presentation, slight differences in estimated delivery date by ultrasound of this exam versus previous exam although growth parameters still within range of normal. Electronically signed by: Yovanny Hernandez MD (03/08/2018 6:07 PM) [id number]
== END | disposition home or self-care (01) ==
LOC: KCIC US 10:31
PROVIDERS: ATTEND Family Medicine
DX: Z34.82 Encounter for supervision of other normal pregnancy, second trimester (principal); Z3A.23 23 weeks gestation of pregnancy
CPT/HCPCS: 76805

== ENCOUNTER 2018-04-18 13:16 | Observation (INO) | payer OTHER ==
[2018-04-18] MEDS ORDERED: IV RINGERS,LACTATED 1000ML 1,000 ML IV SCH (14:15)
[2018-04-18 14:16] LABS: BILIRUBIN,URINE NEGATIVE (NEG); CLARITY,URINE CLEAR; COLOR,URINE YELLOW; NITRITE,URINE NEGATIVE (NEG); PROTEIN,URINE NEGATIVE (NEG-TRACE); UROBILINOGEN,URINE 0.2 mg/dL (0.2 mg/dL)
[2018-04-18 14:27] LABS: BACTERIA,URINE MODERATE /HPF (0-FEW); RBC,URINE 0 /HPF (0-2); SQUAMOUS EPITHELIAL CELL,UR OCC /LPF
[2018-04-18 14:28] LABS: AMPHETAMINE/METHAMPHETAMINE NEG (NEG); BARBITURATES NEG (NEG); BENZODIAZEPINES NEG (NEG); CANNABINOIDS POS (NEG); COCAINE NEG (NEG); METHADONE NEG (NEG); OPIATES NEG (NEG); PHENCYCLIDINE NEG (NEG)
== END 2018-04-18 15:20 | disposition home or self-care (01) ==
LOC: 3 SO LND 13:16
PROVIDERS: ADMIT Family Medicine; ATTEND Family Medicine
DX: O26.893 Other specified pregnancy related conditions, third trimester (principal); M24.459 Recurrent dislocation, unspecified hip; Z3A.29 29 weeks gestation of pregnancy
CPT/HCPCS: 80307; 81001; 87086; G0378; G0379

== ENCOUNTER 2018-05-19 20:37 | Observation (INO) | payer OTHER ==
[2018-05-19] MEDS ORDERED: ACETAMINOPHEN 325 MG TABLET. PO PRN (21:00)
[2018-05-19] MEDS ORDERED: ONDANSETRON PF 4 MG/2 ML VIAL. IV PRN (21:00)
[2018-05-19] MEDS ORDERED: IV RINGERS,LACTATED 1000ML 1,000 ML IV SCH (21:00)
[2018-05-19 21:26] LABS: BILIRUBIN,URINE SMALL (NEG); CLARITY,URINE CLOUDY; COLOR,URINE AMBER; NITRITE,URINE NEGATIVE (NEG); PROTEIN,URINE 30 mg/dL (NEG-TRACE)
[2018-05-19 21:32] LABS: BARBITURATES NEG (NEG); BENZODIAZEPINES NEG (NEG); CANNABINOIDS POS (NEG); COCAINE NEG (NEG); METHADONE NEG (NEG); OPIATES NEG (NEG); PHENCYCLIDINE NEG (NEG)
[2018-05-19 21:33] LABS: AMPHETAMINE/METHAMPHETAMINE NEG (NEG); BACTERIA,URINE MANY /HPF (0-FEW); RBC,URINE 0 /HPF (0-2); SQUAMOUS EPITHELIAL CELL,UR MANY /LPF; WBC,URINE TNTC /HPF (0-4)
[2018-05-19 21:50] LABS: AMNIO PT NEGATIVE
[2018-05-19] MEDS ORDERED: ACETAMINOPHEN 500 MG TABLET PO PRN (22:30)
== END 2018-05-19 23:40 | disposition home or self-care (01) ==
LOC: 3 SO LND 20:37
PROVIDERS: ADMIT Family Medicine; ATTEND Family Medicine
DX: O21.2 Late vomiting of pregnancy (principal); O26.893 Other specified pregnancy related conditions, third trimester; M54.9 Dorsalgia, unspecified; Z3A.33 33 weeks gestation of pregnancy
CPT/HCPCS: 36415; 80307; 81001; 84112; 87086; 96361; 96374; G0378; G0379; J2405; J7120

== ENCOUNTER 2018-06-28 09:52 | Inpatient (IN) | payer OTHER ==
[~2018-06-28] VITALS: Ht 162.6 cm; Wt 94.8 kg
[2018-06-28] MEDS ORDERED: fentaNYL PF VIAL 100 MCG/2 ML VIAL IV PRN (10:30)
[2018-06-28] MEDS ORDERED: LIDOCAINE 1% PF 30 ML VIAL. INJ PRN (10:30)
[2018-06-28] MEDS ORDERED: TERBUTALINE 1 MG/ML VIAL. SQ PRN (10:30)
[2018-06-28] MEDS ORDERED: OXYTOCIN 30 UNIT/500 ML PREMIX 500 ML IV PRN ×2 (10:30→15:00)
[2018-06-28] MEDS ORDERED: 0.9 % SODIUM CHLORIDE 10 ML DISP.SYRIN. IV PRN ×2 (10:30→15:00)
[2018-06-28 10:38] VITALS: BP 106/69
[2018-06-28] MEDS ORDERED: ALPR0.254 PO (10:38)
[2018-06-28] MEDS: IV RINGERS,LACTATED 1000ML 1,000 ML IV SCH ×2 (10:58→13:59)
[2018-06-28 11:05] LABS: BASO % 1 % (0-3); EOS % 0 % (0-3); HEMATOCRIT 36.4 % (36.0-47.0); HEMOGLOBIN 11.9 g/dL (12.0-15.5); LYMPH # 1.6 x10^3/uL (1.0-4.8); LYMPH % 16 % (24-48); MEAN CORPUSCULAR HEMOGLOBIN 28 pg (25-35); MEAN CORPUSCULAR HGB CONC 33 g/dL (31-37); MEAN CORPUSCULAR VOLUME 87 fL (79-100); MONO # 0.6 x10^3/uL (0.0-1.1); MONO % 6 % (0-9); NEUT # 7.5 x10^3uL (1.8-7.7); NEUT % 77 % (31-73); PLATELET COUNT 269 x10^3/uL (140-400); RED BLOOD COUNT 4.18 x10^6/uL (3.50-5.40); RED CELL DISTRIBUTION WIDTH 14.5 % (11.5-14.5); WHITE BLOOD COUNT 9.7 x10^3/uL (4.0-11.0)
[2018-06-28] MEDS ORDERED: L&D EPIDURAL SYRINGE 50 ML ONE (11:56)
[2018-06-28] MEDS ORDERED: ROPIVacaine 0.2% PF 10 ML VIAL. ONE (11:56)
[2018-06-28] MEDS ORDERED: ROPIVacaine 0.2% PF 10 ML VIAL. EPID PRN (12:00)
[2018-06-28] MEDS ORDERED: IV RINGERS,LACTATED 1000ML 1,000 ML IV SCH (12:00)
[2018-06-28] MEDS ORDERED: L&D EPIDURAL SYRINGE 50 ML EPID PRN (12:00)
[2018-06-28] MEDS ORDERED: NALOXONE 0.4 MG/ML VIAL. IV PRN (12:00)
[2018-06-28] MEDS ORDERED: fentaNYL PF VIAL 100 MCG/2 ML VIAL EPI PRN (12:00)
[2018-06-28] MEDS ORDERED: fentaNYL PF VIAL 100 MCG/2 ML VIAL ONE (12:37)
[2018-06-28] MEDS ORDERED: LIDOCAINE 2% PF 5 ML VIAL. ONE (13:22)
[2018-06-28] MEDS ORDERED: BUPIVACAINE MPF 0.25% 30 ML VIAL. ONE (13:56)
[2018-06-28] MEDS ORDERED: fentaNYL PF VIAL 100 MCG/2 ML VIAL IV ONE (14:00)
--- NOTE | 2018-06-28 14:53 | PDOC1 ---
OB - History Hx of Present Care: Good Care Ultrasounds: Normal mid trimester US Obstetrical Complications: None Medical Complications: Musculoskeletal (right hip instability) Past Family/Social History * Past Medical, Surgical, Family and Obstetric Histories reviewed from chart. Blood Type: A+ Rubella: Immune RPR/VDRL: Negative GBS Status: Negative HBsAG: Negative OB - Chief Complaint & HPI Date of Admission: Date of Admission: Jun 28, 2018 at 09:52 Chief Complaint/History : 3 Para: 1 EDC: Jul 02, 2018 EGA: 39.3 Reason for admission: active labor, rupture of membranes Admission Nurse Assessment Rev: No OB - Admission Exam Physical Exam Vitals: VS - Last 72 Hours, by Label Date Time Temp Pulse Resp B/P (MAP) Pulse Ox O2 Delivery O2 Flow Rate FiO2 06/28/18 13:56 20 100 Room Air 06/28/18 12:02 20 Room Air 06/28/18 10:54 20 Room Air 06/28/18 10:38 98.1 90 20 106/69 (81) 98.1 HEENT: Normal, Nasal Mucosa Normal, Oropharynx Normal, Moist Membranes, Fontanelles Normal Heart: Regular Rate, No Murmurs, No Gallops, No Rubs Lungs: Clear, Equal Abdomen: Gravid Extremities: Normal Pulses, No tenderness or swelling Reflexes: Normal Cervical Dilatation: 3cm Effacement: 50% Station: -2 Membranes: Ruptured Amniotic Fluid: Clear Heart Rate: Normal Accelerations: Accelerations Present Decelerations: No decelerations Short Term Variability: Present Tray Server Variability: Moderate Contractions on Admission: < 5 Minutes Apart Date/Time Contractions Began;: 06/28/18 at 1000 Intensity: DANNI Abrams MD Jun 28, 2018 14:53
--- NOTE | 2018-06-28 14:58 | PDOC ---
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 Pt has also been battling with right hip and instability for most of her . Will have both ibuprofen and oxycodone available as needed for pain 3)Breast/bottlefeeding 4)GBS negative 5)Rh negative 6)Mom desires circumcision for son DANNI PEDRO MD Jun 28, 2018 14:58
[2018-06-28] MEDS ORDERED: BENZOCAINE 20% TOPICAL AEROSOL SPRAY 57GM CAN. TP PRN (15:00)
[2018-06-28] MEDS ORDERED: diphenhydrAMINE HCL 25 MG CAPSULE PO PRN (15:00)
[2018-06-28] MEDS ORDERED: ZOLPIDEM 5 MG TABLET. PO PRN (15:00)
[2018-06-28] MEDS ORDERED: MAGNESIUM HYDROXIDE 2,400 MG/30 ML ORAL.SUSP. PO PRN (15:00)
[2018-06-28] MEDS ORDERED: HYDROCORTISONE 1% TOPICAL OINTMENT 30GM TUBE. TP PRN (15:00)
[2018-06-28] MEDS ORDERED: MAG HYDROX/ALUMINUM HYD/SIMETH 30 ML ORAL.SUSP PO PRN (15:00)
[2018-06-28] MEDS ORDERED: PHENYLEPH/MINERAL OIL/PETROLAT RECTAL OINTMENT 28GM TUBE. RC PRN (15:00)
[2018-06-28] MEDS ORDERED: SIMETHICONE 80 MG TAB.CHEW PO PRN (15:00)
[2018-06-28] MEDS ORDERED: MMR per PROTOCOL. MC PRN (15:00)
[2018-06-28] MEDS ORDERED: ACETAMINOPHEN 325 MG TABLET. PO PRN (15:00)
[2018-06-28] MEDS ORDERED: ALPRAZolam 0.25 MG TABLET PO PRN (15:30)
[2018-06-28] MEDS: oxyCODONE/APAP 5/325 1 TAB TABLET PO PRN (15:58)
[2018-06-28 17:20] VITALS: BP 117/70
[2018-06-28 18:15] VITALS: BP 99/61
[2018-06-28] MEDS: IBUPROFEN 400 MG TABLET. PO SCH (20:16)
[2018-06-29 00:10] VITALS: BP 103/64
[2018-06-29] MEDS: oxyCODONE/APAP 5/325 1 TAB TABLET PO PRN ×4 (00:10→21:31)
[2018-06-29 05:00] VITALS: BP 99/69
[2018-06-29 06:00] LABS: HEMATOCRIT 29.1 % (36.0-47.0); HEMOGLOBIN 9.7 g/dL (12.0-15.5); RED BLOOD COUNT 3.32 x10^6/uL (3.50-5.40); RED CELL DISTRIBUTION WIDTH 14.5 % (11.5-14.5); WHITE BLOOD COUNT 9.5 x10^3/uL (4.0-11.0)
[2018-06-29 10:44] VITALS: BP 99/54
[2018-06-29] MEDS: IBUPROFEN 400 MG TABLET. PO SCH ×2 (10:51→21:31)
[2018-06-29 11:20] VITALS: BP 99/54
--- NOTE | 2018-06-29 12:06 | PDOC ---
OB Progress Note Date of Service 06/29/18 Time of Evaluation 1115 Date: 06/28/18 Time: 1423 Notes Pt is doing well. Pain is well controlled with medications. Feels slightly weak. Bleeding is less than a period. with some supplementation OB VITAL SIGNS: Temperature (97.8), Blood Pressure, Pulse (65), O2 Sat (99) Lab Laboratory Tests Test 06/28/18 10:30 06/29/18 05:20 White Blood Count 9.7 x10^3/uL (4.0-11.0) 9.5 x10^3/uL (4.0-11.0) Red Blood Count 4.18 x10^6/uL (3.50-5.40) 3.32 x10^6/uL (3.50-5.40) Hemoglobin 11.9 g/dL (12.0-15.5) 9.7 g/dL (12.0-15.5) Hematocrit 36.4 % (36.0-47.0) 29.1 % (36.0-47.0) Mean Corpuscular Volume 87 fL (79-100) 88 fL (79-100) Mean Corpuscular Hemoglobin 28 pg (25-35) 29 pg (25-35) Mean Corpuscular Hemoglobin Concent 33 g/dL (31-37) 34 g/dL (31-37) Red Cell Distribution Width 14.5 % (11.5-14.5) 14.5 % (11.5-14.5) Platelet Count 269 x10^3/uL (140-400) 220 x10^3/uL (140-400) Neutrophils (%) (Auto) 77 % (31-73) Lymphocytes (%) (Auto) 16 % (24-48) Monocytes (%) (Auto) 6 % (0-9) Eosinophils (%) (Auto) 0 % (0-3) Basophils (%) (Auto) 1 % (0-3) Neutrophils # (Auto) 7.5 x10^3uL (1.8-7.7) Lymphocytes # (Auto) 1.6 x10^3/uL (1.0-4.8) Monocytes # (Auto) 0.6 x10^3/uL (0.0-1.1) Eosinophils # (Auto) 0.0 x10^3/uL (0.0-0.7) Basophils # (Auto) 0.0 x10^3/uL (0.0-0.2) Treponema pallidum Antibody Nonreactive (Nonreactive) Laboratory Tests Test 06/29/18 05:20 White Blood Count 9.5 x10^3/uL (4.0-11.0) Red Blood Count 3.32 x10^6/uL (3.50-5.40) Hemoglobin 9.7 g/dL (12.0-15.5) Hematocrit 29.1 % (36.0-47.0) Mean Corpuscular Volume 88 fL (79-100) Mean Corpuscular Hemoglobin 29 pg (25-35) Mean Corpuscular Hemoglobin Concent 34 g/dL (31-37) Red Cell Distribution Width 14.5 % (11.5-14.5) Platelet Count 220 x10^3/uL (140-400) Medications Current Medications Sodium Chloride (Normal Saline Flush) 3 ml QSHIFT PRN IV AFTER MEDS AND BLOOD DRAWS; Start 06/28/18 at 10:30; Stop 06/29/18 at 11:52; Status DC Ringer's Solution 1,000 ml @ 125 mls/hr Q8H IV Last administered on 06/28/18at 13:59; Start 06/28/18 at 10:28 Fentanyl Citrate (Fentanyl 2ml Vial) 100 mcg PRN Q30MIN PRN IV Severe pain Last administered on 06/28/18at 10:54; Start 06/28/18 at 10:30 Terbutaline Sulfate (Brethine) 0.25 mg 1X PRN PRN SQ SEE COMMENTS; Start at 10:30; Stop 06/29/18 at 10:29; Status DC Lidocaine HCl (Xylocaine 1% Pf 30ml Vial) 30 ml 1X PRN PRN INJ SEE COMMENTS; Start 06/28/18 at 10:30; Stop 06/30/18 at 10:29 Oxytocin/Sodium Chloride 500 ml @ 0 mls/hr CONT PRN PRN IV Post delivery bleeding Last administered on 06/28/18at 16:00; Start 06/28/18 at 10:30 Ringer's Solution 1,000 ml @ 1,000 mls/hr Q1H IV Last administered on at 12:06; Start 06/28/18 at 12:00; Stop 06/28/18 at 12:59; Status DC Naloxone HCl (Narcan) 0.04 mg PRN Q1MIN PRN IV SEE COMMENTS; Start 06/28/18 at 12:00 Fentanyl Citrate (Fentanyl 2ml Vial) 100 mcg PRN 1X PRN EPI FOR ANESTHESIA; Start 06/28/18 at 12:00; Stop 06/29/18 at 11:59; Status DC Ropivacaine/ Fentanyl/NS 50 ml @ 14 mls/hr CONT PRN EPID PAIN Last administered on 06/28/18at 12:02; Start 06/28/18 at 12:00 Ropivacaine (Naropin 0.2%) 40 ml 1X PRN PRN EPID PER ANESTHESIA Last administered on 06/28/18at 12:01; Start 06/28/18 at 12:00; Stop 06/28/18 at 12:02; Status DC Ropivacaine (Naropin 0.2%) 10 ml STK-MED ONCE .ROUTE ; Start 06/28/18 at 11:56; Stop 06/28/18 at 11:57; Status DC Ropivacaine/ Fentanyl/NS 50 ml @ As Directed STK-MED ONCE .ROUTE ; Start at 11:56; Stop 06/28/18 at 11:57; Status DC Fentanyl Citrate (Fentanyl 2ml Vial) 100 mcg STK-MED ONCE .ROUTE ; Start at 12:37; Stop 06/28/18 at 12:38; Status DC Lidocaine HCl (Lidocaine Pf 2% Vial) 5 ml STK-MED ONCE .ROUTE ; Start 06/28/18 at 13:22; Stop 06/28/18 at 13:23; Status DC Fentanyl Citrate (Fentanyl 2ml Vial) 50 mcg 1X ONCE IV Last administered on 06/28/18at 13:56; Start 06/28/18 at 14:00; Stop 06/28/18 at 14:01; Status DC Bupivacaine HCl (Sensorcaine Mpf 0.25%) 30 ml STK-MED ONCE .ROUTE ; Start at 13:56; Stop 06/28/18 at 13:57; Status DC Sodium Chloride (Normal Saline Flush) 10 ml QSHIFT PRN IV AFTER MEDS AND BLOOD DRAWS; Start 06/28/18 at 15:00 Oxytocin/Sodium Chloride 500 ml @ 62.5 mls/hr CONT PRN IV SEE I/O RECORD; Start 06/28/18 at 15:00; Stop 06/28/18 at 22:59; Status DC Acetaminophen (Tylenol) 650 mg PRN Q6HRS PRN PO MILD PAIN / TEMP; Start at 15:00 Ibuprofen (Motrin) 800 mg Q8HRS PO Last administered on 06/29/18at 10:51; Start 06/28/18 at 20:00 Magnesium Hydroxide (Milk Of Magnesia) 2,400 mg PRN DAILY PRN PO CONSTIPATION; Start 06/28/18 at 15:00 Al Hydroxide/Mg Hydroxide (Mylanta Plus Xs) 30 ml PRN Q4HRS PRN PO HEARTBURN / GAS; Start 06/28/18 at 15:00 Simethicone (Gas-X) 80 mg PRN AFTMEALHC PRN PO GAS / BLOATING; Start 06/28/18 at 15:00 Diphenhydramine HCl (Benadryl) 25 mg PRN Q6HRS PRN PO ITCHING; Start 06/28/18 at 15:00 Benzocaine (Americaine) 1 spray PRN QID PRN TP TOPICAL PAIN Last administered on 06/28/18at 15:59; Start 06/28/18 at 15:00 Phenyleph/Shark Oil/Min Oil/Petrol (Preparation H) 1 slime PRN QID PRN RC RECTAL PAIN; Start 06/28/18 at 15:00 Hydrocortisone (Cortaid) 1 slime PRN QID PRN TP PERINEAL PAIN; Start 06/28/18 at 15:00 Zolpidem Tartrate (Ambien) 5 mg PRN QHS PRN PO INSOMNIA, MAY REPEAT X1; Start 06/28/18 at 15:00 Info (Do NOT chart on this placeholder) 1 ea 1X PRN PRN MC SEE COMMENTS; Start 06/28/18 at 15:00 Info (Do NOT chart on this placeholder) 1 ea 1X PRN PRN MC SEE COMMENTS; Start 06/28/18 at 15:00 Oxycodone/ Acetaminophen (Percocet 5/325) 1 tab PRN Q4HRS PRN PO MODERATE- SEVERE PAIN Last administered on 06/29/18at 05:52; Start 06/28/18 at 15:00 Alprazolam (Xanax) 0.25 mg PRN DAILY PRN PO ANXIETY / AGITATION; Start 06/28/18 at 15:30 Active Scripts Active Reported Alprazolam 0.25 Mg Tablet 1 Tab PO DAILY Exam GEN: NAD, AOx3 HEENT: MMM, EOMI, no scleral icterus/injection Cardiac: RRR, no M/R/G Lungs: CTAB Abd: fundal height 2cm below umbilicus Ext: 2+ edema Assessment Pt is a 22yo G3 now P2 s/p at 39.3wga 1) 2)Pain mgmt- well controlled with Ibuprofen and percocet 3)Breast/bottlefeeding 4)GBS negative 5)Rh negative- Ab negative, will be getting Rhogam shot DANNI PEDRO MD Jun 29, 2018 12:06
[2018-06-29 16:00] VITALS: BP 92/60
[2018-06-29] MEDS: FERROUS SULFATE 325 MG TABLET. PO SCH (16:18)
[2018-06-29 22:00] VITALS: BP 115/62
[2018-06-30 06:30] VITALS: BP 91/54
[2018-06-30] MEDS: oxyCODONE/APAP 5/325 1 TAB TABLET PO PRN ×2 (08:26→15:29)
[2018-06-30] MEDS: FERROUS SULFATE 325 MG TABLET. PO SCH ×2 (08:26→08:28)
[2018-06-30] MEDS: IBUPROFEN 400 MG TABLET. PO SCH (08:27)
[2018-06-30 10:20] VITALS: BP 102/61
--- NOTE | 2018-06-30 11:00 | PDOC3 ---
OB DISCHARGE SUMMARY DATE OF ADMISSION: 06/28/18 DATE OF DISCHARGE: 06/30/18 REASON FOR ADMISSION: Onset of labor, SROM PROCEDURES: Mgmt of Med Complications INTRAPARTUM PROCEDURES: Spontanous Vag Deliv PROCEDURES: RHO (D) IG DISCHARGE DIAGNOSIS: Term Delivered DISCHARGE INFORMATION: Activity (As tolerated), Diet (Regular), Medications ( Ibuprofen 800mg TID, Percocet 5/325mg q6H prn, Docusate 100mg qday, Ferrous Sulfate 325mg qday), Instructions (F/u with Dr. Abbott in 4-6 weeks), Discharge to (Home) HOSPITAL COURSE Pt is a 22yo G3 now P2 s/p at 39.3wga 1) 2)Pain mgmt- well controlled with Ibuprofen and percocet 3)Breast/bottlefeeding 4)GBS negative 5)Rh negative- Ab negative, got DANNI Metcalf MD Jun 30, 2018 11:00
[2018-06-30 15:30] VITALS: BP 99/60
== END 2018-06-30 16:25 | disposition home or self-care (01) | DRG 806 ==
LOC: 3 SO LND 09:52 → OBSVTOIN 09:52 → 3 SO LND 10:34 → 3 NORTH 17:15
PROVIDERS: ADMIT Family Medicine; ATTEND Family Medicine
PROC: 3E0334Z Introduction of Serum, Toxoid and Vaccine into Peripheral Vein, Percutaneous Approach (ICD-10-PCS; 2018-06-28)
PROC: 10E0XZZ Delivery of Products of Conception, External Approach (ICD-10-PCS; principal; 2018-06-29)
PROC: 3E0R3BZ Introduction of Anesthetic Agent into Spinal Canal, Percutaneous Approach (ICD-10-PCS; 2018-06-29)
PROC: 00HU33Z Insertion of Infusion Device into Spinal Canal, Percutaneous Approach (ICD-10-PCS; 2018-06-29)
DX: O99.02 Anemia complicating childbirth (principal); D62 Acute posthemorrhagic anemia; Z37.0 Single live birth; M25.351 Other instability, right hip; Z3A.39 39 weeks gestation of pregnancy; Z88.8 Allergy status to other drugs, medicaments and biological substances
CPT/HCPCS: 36415; 85025; 85027; 85461; 86592; 86850; 86900; 86901; J2001; J2590; J2791; J2795; J3010; J7120

== ENCOUNTER 2018-10-07 14:35 | Inpatient (IN) | payer SELFPAY ==
[~2018-10-07] VITALS: Ht 162.6 cm; Wt 89.8 kg
[~2018-10-07 14:35] MED LIST changes: +ALPR0.254 PO
[2018-10-07] MEDS ORDERED: IV NORMAL SALINE 1000ML BAG 1,000 ML IV SCH ×2 (15:29→17:14)
[2018-10-07] MEDS ORDERED: IV NORMAL SALINE 1000ML BAG 1,000 ML IV ONE (15:30)
[2018-10-07] MEDS ORDERED: ONDANSETRON PF 4 MG/2 ML VIAL. IV ONE (15:30)
[2018-10-07 15:39] LABS: BASO % 0 % (0-3); EOS # 0.2 x10^3/uL (0.0-0.7); EOS % 3 % (0-3); HEMATOCRIT 39.1 % (36.0-47.0); HEMOGLOBIN 13.1 g/dL (12.0-15.5); LYMPH # 0.8 x10^3/uL (1.0-4.8); LYMPH % 11 % (24-48); MEAN CORPUSCULAR HEMOGLOBIN 28 pg (25-35); MEAN CORPUSCULAR HGB CONC 33 g/dL (31-37); MEAN CORPUSCULAR VOLUME 84 fL (79-100); MONO # 0.3 x10^3/uL (0.0-1.1); MONO % 4 % (0-9); NEUT # 5.9 x10^3uL (1.8-7.7); NEUT % 82 % (31-73); PLATELET COUNT 234 x10^3/uL (140-400); RED BLOOD COUNT 4.65 x10^6/uL (3.50-5.40); RED CELL DISTRIBUTION WIDTH 14.1 % (11.5-14.5); WHITE BLOOD COUNT 7.2 x10^3/uL (4.0-11.0)
[2018-10-07] MEDS ORDERED: fentaNYL PF VIAL 100 MCG/2 ML VIAL IV ONE (15:45)
[2018-10-07] MEDS ORDERED: IOHEXOL 300 MG/ML 100ML VIAL. IV ONE (15:45)
[2018-10-07 15:47] LABS: PREG TEST PT QUAL NEGATIVE (NEG)
[2018-10-07 15:51] LABS: CALCIUM 8.8 mg/dL (8.5-10.1); CREATININE 0.9 mg/dL (0.6-1.0); GFR 78.3; POTASSIUM 3.8 mmol/L (3.5-5.1)
[2018-10-07 15:57] LABS: ALBUMIN 3.7 g/dL (3.4-5.0); ALBUMIN/GLOBULIN RATIO 1.1 (1.0-1.7); DIRECT BILIRUBIN 0.2 mg/dL (0.0-0.2); TOTAL BILIRUBIN 0.6 mg/dL (0.2-1.0); TOTAL PROTEIN 7.2 g/dL (6.4-8.2)
--- NOTE | 2018-10-07 16:24 | RAD ---
CT ABD PELV W/ IV CONTRST ONLY Indication: Abdominal pain Technique: Postcontrast CT imaging was performed of the abdomen pelvis, multiplanar reconstruction images submitted. One or more of the following individualized dose reduction techniques were utilized for this examination: 1. Automated exposure control 2. Adjustment of the mA and/or kV according to patient size 3. Use of iterative reconstruction technique. Comparison: None Findings: There is no abnormality of the limited visualized lung bases. No focal abnormality is identified of the liver, pancreas, spleen. There is cholelithiasis, also degree of gallbladder wall thickening and enhancement. Evaluation of bowel is somewhat limited without oral contrast. Bowel is not significantly dilated. There is no free fluid or free air. Appendix caliber is within normal limits without adjacent inflammatory-type change. There is no adrenal nodularity. Both kidneys enhance, no hydronephrosis. IMPRESSION: 1. There is cholelithiasis, also degree of gallbladder wall thickening and enhancement suspicious for cholecystitis. 2. There is no CT evidence of acute appendicitis. Electronically signed by: Yovanny Hernandez MD (10/07/2018 4:21 PM) [id number]
[2018-10-07 16:27] LABS: BILIRUBIN,URINE SMALL (NEG); CLARITY,URINE CLEAR; COLOR,URINE YELLOW; NITRITE,URINE NEGATIVE (NEG); PROTEIN,URINE NEGATIVE (NEG-TRACE); UROBILINOGEN,URINE 0.2 mg/dL (0.2 mg/dL)
[2018-10-07 16:34] LABS: BACTERIA,URINE 0 /HPF (0-FEW); RBC,URINE 0 /HPF (0-2); SQUAMOUS EPITHELIAL CELL,UR FEW /LPF; WBC,URINE RARE /HPF (0-4)
[2018-10-07 16:36] LABS: AMPHETAMINE/METHAMPHETAMINE NEG (NEG); BARBITURATES NEG (NEG); BENZODIAZEPINES NEG (NEG); CANNABINOIDS POS (NEG); COCAINE NEG (NEG); METHADONE NEG (NEG); OPIATES NEG (NEG); PHENCYCLIDINE NEG (NEG)
--- NOTE | 2018-10-07 16:41 | PHYS DOC ---
Past Medical History Past Medical History: Anxiety, Depression, Other Additional Past Medical Histor: hypoglycemic, miscarrage 2 yrs ago, ADHD Past Surgical History: Other Additional Past Surgical Histo: right hip, lymph nodes left neck Alcohol Use: Occasionally Drug Use: None Adult General Chief Complaint Chief Complaint: ABDOMINAL PAIN HPI HPI Patient is a 22 year old female who presents with right upper quadrant sharp pain that comes on and off the last 2 months. Patient stated states at any point in the day and it does not coincide with what she eats. Patient did have a baby 3 months ago. Patient primary care doctor is Dr. Leela Abbott. Patient is been being treated with Prilosec. Patient states she's had reflux problems and has been vomiting bile and she has vomited 8 times last 24 hours. Patient states that this time she only has pain at mid upper quadrant and epigastric area she rates a 6 out of 10. Review of Systems Review of Systems Constitutional: Denies fever or chills [] Eyes: Denies change in visual acuity, redness, or eye pain [] HENT: Denies nasal congestion or sore throat [] Respiratory: Denies cough or shortness of breath [] Cardiovascular: No additional information not addressed in HPI [] GI: Right upper quadrant and epigastric abdominal pain, nausea, vomiting, denies bloody stools or diarrhea [] : Denies dysuria or hematuria [] Musculoskeletal: Denies back pain or joint pain [] Integument: Denies rash or skin lesions [] Neurologic: Denies headache, focal weakness or sensory changes [] Endocrine: Denies polyuria or polydipsia [] All other systems were reviewed and found to be within normal limits, except as documented in this note. Current Medications Current Medications Current Medications Medications (Trade) Dose Ordered Sig/Shalonda Start Time Stop Time Status Last Admin Dose Admin Fentanyl Citrate (Fentanyl 2ml Vial) 50 mcg 1X ONCE 10/07/18 15:45 10/07/18 15:46 DC 10/07/18 16:15 50 MCG Iohexol (Omnipaque 300 Mg/ml) 75 ml 1X ONCE 10/07/18 15:45 10/07/18 15:46 DC 10/07/18 16:02 75 ML Ondansetron HCl (Zofran) 4 mg 1X ONCE 10/07/18 15:30 10/07/18 15:34 DC 10/07/18 16:15 4 MG Sodium Chloride 1,000 ml @ 1,000 mls/hr 1X ONCE 10/07/18 15:30 10/07/18 16:29 DC 10/07/18 15:30 1,000 MLS/HR Allergies Allergies Allergies Coded Allergies Type Severity Reaction Last Updated Verified naproxen Allergy Intermediate 04/17/16 Yes Physical Exam Physical Exam Constitutional: Well developed, well nourished, no acute distress, non-toxic appearance. [] HENT: Normocephalic, atraumatic, bilateral external ears normal, oropharynx mo ist, no oral exudates, nose normal. [] Eyes: PERRLA, EOMI, conjunctiva normal, no discharge. [] Neck: Normal range of motion, no tenderness, supple, no stridor. [] Cardiovascular:Heart rate regular rhythm, no murmur [] Lungs & Thorax: Bilateral breath sounds clear to auscultation [] Abdomen: Bowel sounds normal, soft, epigastric tenderness, no masses, no pulsatile masses. [] Skin: Warm, dry, no erythema, no rash. [] Back: No tenderness, no CVA tenderness. [] Extremities: No tenderness, no cyanosis, no clubbing, ROM intact, no edema. [] Neurologic: Alert and oriented X 3, normal motor function, normal sensory function, no focal deficits noted. [] Psychologic: Affect normal, judgement normal, mood normal. [] Current Patient Data Vital Signs Vital Signs Date Time Temp Pulse Resp B/P (MAP) Pulse Ox O2 Delivery O2 Flow Rate FiO2 10/07/18 15:04 98.2 79 18 121/79 (93) 99 Room Air 98.2 Lab Values Laboratory Tests Test 10/07/18 15:29 10/07/18 16:10 White Blood Count 7.2 x10^3/uL (4.0-11.0) Red Blood Count 4.65 x10^6/uL (3.50-5.40) Hemoglobin 13.1 g/dL (12.0-15.5) Hematocrit 39.1 % (36.0-47.0) Mean Corpuscular Volume 84 fL (79-100) Mean Corpuscular Hemoglobin 28 pg (25-35) Mean Corpuscular Hemoglobin Concent 33 g/dL (31-37) Red Cell Distribution Width 14.1 % (11.5-14.5) Platelet Count 234 x10^3/uL (140-400) Neutrophils (%) (Auto) 82 % (31-73) H Lymphocytes (%) (Auto) 11 % (24-48) L Monocytes (%) (Auto) 4 % (0-9) Eosinophils (%) (Auto) 3 % (0-3) Basophils (%) (Auto) 0 % (0-3) Neutrophils # (Auto) 5.9 x10^3uL (1.8-7.7) Lymphocytes # (Auto) 0.8 x10^3/uL (1.0-4.8) L Monocytes # (Auto) 0.3 x10^3/uL (0.0-1.1) Eosinophils # (Auto) 0.2 x10^3/uL (0.0-0.7) Basophils # (Auto) 0.0 x10^3/uL (0.0-0.2) Sodium Level 140 mmol/L (136-145) Potassium Level 3.8 mmol/L (3.5-5.1) Chloride Level 105 mmol/L (98-107) Carbon Dioxide Level 23 mmol/L (21-32) Anion Gap 12 (6-14) Blood Urea Nitrogen 20 mg/dL (7-20) Creatinine 0.9 mg/dL (0.6-1.0) Estimated GFR (Cockcroft-Gault) 78.3 BUN/Creatinine Ratio 22 (6-20) H Glucose Level 84 mg/dL (70-99) Calcium Level 8.8 mg/dL (8.5-10.1) Total Bilirubin 0.6 mg/dL (0.2-1.0) Direct Bilirubin 0.2 mg/dL (0.0-0.2) Aspartate Amino Transferase (AST) 39 U/L (15-37) H Alanine Aminotransferase (ALT) 44 U/L (14-59) Alkaline Phosphatase 97 U/L (46-116) Total Protein 7.2 g/dL (6.4-8.2) Albumin 3.7 g/dL (3.4-5.0) Albumin/Globulin Ratio 1.1 (1.0-1.7) Lipase 113 U/L (73-393) Serum Test, Qualitative Negative (NEG) Urine Collection Type Unknown Urine Color Yellow Urine Clarity Clear Urine pH 6.0 Urine Specific Franklin >=1.030 Urine Protein Negative mg/dL (NEG-TRACE) Urine Glucose (UA) Negative mg/dL (NEG) Urine Ketones (Stick) 15 mg/dL (NEG) Urine Blood Negative (NEG) Urine Nitrite Negative (NEG) Urine Bilirubin Small (NEG) Urine Urobilinogen Dipstick 0.2 mg/dL (0.2 mg/dL) Urine Leukocyte Esterase Negative (NEG) Urine RBC 0 /HPF (0-2) Urine WBC Rare /HPF (0-4) Urine Squamous Epithelial Cells Few /LPF Urine Bacteria 0 /HPF (0-FEW) Urine Mucus Slight /LPF Urine Opiates Screen Neg (NEG) Urine Methadone Screen Neg (NEG) Urine Barbiturates Neg (NEG) Urine Phencyclidine Screen Neg (NEG) Urine Amphetamine/Methamphetamine Neg (NEG) Urine Benzodiazepines Screen Neg (NEG) Urine Cocaine Screen Neg (NEG) Urine Cannabinoids Screen Pos (NEG) Urine Ethyl Alcohol Neg (NEG) Laboratory Tests 10/07/18 15:29 Laboratory Tests 10/07/18 15:29 EKG EKG [] Radiology/Procedures Radiology/Procedures [] Impressions: [facility] [address] [place], [place] [id number] IMAGING REPORT Signed PATIENT: BUBBA SALMERON ACCOUNT: [id number] : 1995 LOCATION: ER AGE: 22 SEX: F EXAM STATUS: REG ER ORD. PHYSICIAN: EDVIN MCKEON APRN REASON: ABDOMINAL PAIN PROCEDURE: CT ABD PELV W/ IV CONTRST ONLY CT ABD PELV W/ IV CONTRST ONLY Indication: Abdominal pain Technique: Postcontrast CT imaging was performed of the abdomen pelvis, multiplanar reconstruction images submitted. One or more of the following individualized dose reduction techniques were utilized for this examination: 1. Automated exposure control 2. Adjustment of the mA and/or kV according to patient size 3. Use of iterative reconstruction technique. Comparison: None Findings: There is no abnormality of the limited visualized lung bases. No focal abnormality is identified of the liver, pancreas, spleen. There is cholelithiasis, also degree of gallbladder wall thickening and enhancement. Evaluation of bowel is somewhat limited without oral contrast. Bowel is not significantly dilated. There is no free fluid or free air. Appendix caliber is within normal limits without adjacent inflammatory-type change. There is no adrenal nodularity. Both kidneys enhance, no hydronephrosis. IMPRESSION: 1. There is cholelithiasis, also degree of gallbladder wall thickening and enhancement suspicious for cholecystitis. 2. There is no CT evidence of acute appendicitis. Electronically signed by: Selam Ram MD (10/07/2018 4:21 PM) [id number] DICTATED and SIGNED BY: SELAM RAM MD DATE: 10/07/18 1621 Course & Med Decision Making Course & Med Decision Making Patient is a 22 year old female who presents with right upper quadrant sharp p ain that comes on and off the last 2 months. Patient stated states at any point in the day and it does not coincide with what she eats. Patient did have a baby 3 months ago. Patient primary care doctor is Dr. Leela Abbott. Patient is been being treated with Prilosec. Patient states she's had reflux problems and has been vomiting bile and she has vomited 8 times last 24 hours. Patient states that this time she only has pain at mid upper quadrant and epigastric area she rates a 6 out of 10.vital signs are within normal limits. Alert and oriented �4. Ambulatory with steady gait. Speaks in full clear sentences. Abdomen is soft and tender only at epigastric. Clear to auscultation in all lobes. Heart rate regular without murmur. Skin pink warm and dry. Patient is given 2 saline boluses, Zofran, fentanyl. She is no extremity edema. She has not vomited since she has been in the ED. Blood work is unremarkable. Urinalysis not infected. CT shows 1. There is cholelithiasis, also degree of gallbladder wall thickening and enhancement suspicious for cholecystitis. 2. There is no CT evidence of acu te appendicitis. I've spoken to Dr. Virgen and she states to admit the patient, started on fluids and Zosyn, consult general surgery and put the patient on clear liquid diet. Patient is admitted to the hospital. I have spoken to Dr. Tamayo from general surgery and let him know about the patient. I made the patient nothing by mouth after midnight. Dragon Disclaimer Dragon Disclaimer This electronic medical record was generated, in whole or in part, using a voice recognition dictation system. Departure Departure Impression: Primary Impression: Cholecystitis Additional Impression: Cholelithiases Disposition: 09 ADMITTED INPATIENT Admitting Physician: Yadira Goode Condition: STABLE Referrals: SELAM LING MD (PCP) Problem Qualifiers Additional Impression: Cholelithiases Cholelithiasis location: gallbladder Cholecystitis presence: with cholecystitis Cholecystitis acuity: acute Biliary obstruction: without biliary obstruction Qualified Codes: K80.00 - Calculus of gallbladder with acute cholecystitis without obstruction EDVIN MCKEON SAND CUTTER Oct 07, 2018 16:41
[2018-10-07] MEDS ORDERED: PIP/TAZO PER PHARMACY MC PRN (17:15)
[2018-10-07] MEDS ORDERED: fentaNYL PF VIAL 100 MCG/2 ML VIAL IV PRN (17:15)
[2018-10-07] MEDS ORDERED: PIPERACILLIN/TAZOBACTAM 3.375 GM in IV NORMAL SALINE 50ML 50 ML IV ONE (17:30)
[2018-10-07] MEDS ORDERED: diphenhydrAMINE HCL 25 MG CAPSULE PO PRN (20:00)
[2018-10-07 23:00] VITALS: BP 117/62
[2018-10-07] MEDS: MORPHINE SULFATE 2 MG/ML VIAL. IV PRN (23:01)
[2018-10-07] MEDS: ONDANSETRON PF 4 MG/2 ML VIAL. IV PRN (23:07)
[2018-10-08] VITALS (12 sets, daily range): BP systolic 91–131; BP diastolic 36–85
[2018-10-08] MEDS: PIPERACILLIN/TAZOBACTAM 3.375 GM in IV NORMAL SALINE 50ML 50 ML IV SCH ×4 (00:22→17:03)
[2018-10-08] MEDS ORDERED: DEXT20TA2 PO (05:28)
[2018-10-08] MEDS: ONDANSETRON PF 4 MG/2 ML VIAL. IV PRN (05:46)
[2018-10-08] MEDS: MORPHINE SULFATE 2 MG/ML VIAL. IV PRN ×7 (05:46→22:26)
--- NOTE | 2018-10-08 08:04 | PDOC2 ---
YOANA MARIE ORBITREAD OPERATOR 10/08/18 0804: CONSULT Date of Consult Date of Consult DATE: 10/08/18 TIME: 08:00 Reason for Consult Reason for Consult: cholecystitis Referring Physician Referring Physician: ER Identification/Chief Complaint Chief Complaint abdominal pain Source Source: Chart review, Patient History of Present Illness Reason for Visit: 2 + months of abdominal pain, nausea, emesis after delivery of baby. Popcorn seems to be an aggravating food, beyond that unsure. Some diarrhea. Pain and vomiting have been worse this last week. Pain is epigastric, across right ribs and radiates to back. Past Medical History Past Medical History ADHD, anxiety Past Surgical History Past Surgical History: No pertinent history Family History Family History: Other (noncontributory to current illness ) Social History No ALCOHOL: none Drugs: Marijuana Lives: with Family Current Problem List Problem List Problems Medical Problems: (1) Cholecystitis Status: Acute (2) Cholelithiases Status: Acute Current Medications Current Medications Current Medications Sodium Chloride 1,000 ml @ 1,000 mls/hr Q1H IV Last administered on 10/07/18at 16:15; Start 10/07/18 at 15:29; Stop 10/07/18 at 16:28; Status DC Ondansetron HCl (Zofran) 4 mg 1X ONCE IV Last administered on 10/07/18at 16:15; Start 10/07/18 at 15:30; Stop 10/07/18 at 15:34; Status DC Sodium Chloride 1,000 ml @ 1,000 mls/hr 1X ONCE IV Last administered on 10/07/18at 15:30; Start 10/07/18 at 15:30; Stop 10/07/18 at 16:29; Status DC Iohexol (Omnipaque 300 Mg/ml) 75 ml 1X ONCE IV Last administered on 10/07/18at 16:02; Start 10/07/18 at 15:45; Stop 10/07/18 at 15:46; Status DC Fentanyl Citrate (Fentanyl 2ml Vial) 50 mcg 1X ONCE IV Last administered on 10/07/18at 16:15; Start 10/07/18 at 15:45; Stop 10/07/18 at 15:46; Status DC Ondansetron HCl (Zofran) 4 mg PRN Q8HRS PRN IV NAUSEA/VOMITING Last administered on 10/08/18at 05:46; Start 10/07/18 at 17:15; Stop 10/08/18 at 17:14 Fentanyl Citrate (Fentanyl 2ml Vial) 50 mcg PRN Q1HR PRN IV PAIN Last administered on 10/07/18at 20:38; Start 10/07/18 at 17:15; Stop 10/08/18 at 17:14 Sodium Chloride 1,000 ml @ 100 mls/hr Q10H IV Last administered on 10/08/18at 00:23; Start 10/07/18 at 17:14; Stop 10/08/18 at 17:13 Piperacillin Sod/ Tazobactam Sod (Zosyn Per Pharmacy) 1 each PRN DAILY PRN MC SEE COMMENTS; Start 10/07/18 at 17:15 Piperacillin Sod/ Tazobactam Sod 3.375 gm/Sodium Chloride 50 ml @ 100 mls/hr 1X ONCE IV Last administered on 10/07/18at 18:06; Start 10/07/18 at 17:30; Stop 10/07/18 at 17:59; Status DC Piperacillin Sod/ Tazobactam Sod 3.375 gm/Sodium Chloride 50 ml @ 100 mls/hr Q6HRS IV Last administered on 10/08/18at 05:46; Start 10/08/18 at 00:00 Morphine Sulfate (Morphine Sulfate) 2 mg PRN Q2HR PRN IV PAIN Last administered on 10/08/18at 05:46; Start 10/07/18 at 20:00 Diphenhydramine HCl (Benadryl) 25 mg PRN Q6HRS PRN PO ITCHING; Start 10/07/18 at 20:00 Active Scripts Active Reported Adderall 20 Mg Tablet (Dextroamphetamine/Amphetamine) 20 Mg Tablet 20 Mg PO BID Alprazolam 0.25 Mg Tablet 1 Tab PO DAILY Allergies Allergies: Coded Allergies: naproxen (Verified Allergy, Intermediate, 04/17/16) ROS General: No: Chills, Other (fevers ) PSYCHOLOGICAL ROS: No: Anxiety, Depression Eyes: No Blurry vision, No Double vision HEENT: No: Heacaches, Sore Throat Hematological and Lymphatic: No: Bleeding Problems, Blood Clots Respiratory: No: Cough, Shortness of breath Cardiovascular: No Chest Pain, No Palpitations Gastrointestinal: Yes Other (see hpi) Genitourinary: No Dysuria, No Hematuria Musculoskeletal: No Joint Pain, No Muscle Pain Neurological: No Confusion, No Impaired Coord/balance Skin: No Pruritus, No Rash Physical Exam General: Alert, Oriented X3, Cooperative, No acute distress HEENT: PERRLA, Mucous membr. moist/pink Lungs: Clear to auscultation, Normal air movement Heart: Regular rate, Normal S1, Normal S2, No murmurs Abdomen: Soft, Other (ND, TTP epigastric, RUQ) Extremities: No clubbing, No cyanosis Skin: No rashes, No breakdown Neuro: Normal gait, Normal speech Psych/Mental Status: Mental status NL, Mood NL MUSCULOSKELETAL: No deformity, No swelling Vitals VITALS Vital Signs Date Time Temp Pulse Resp B/P (MAP) Pulse Ox O2 Delivery O2 Flow Rate FiO2 10/08/18 07:00 98.3 54 18 103/38 (59) 98 Room Air 98.3 Labs Labs Laboratory Tests Test 10/07/18 15:29 10/07/18 16:10 White Blood Count 7.2 x10^3/uL (4.0-11.0) Red Blood Count 4.65 x10^6/uL (3.50-5.40) Hemoglobin 13.1 g/dL (12.0-15.5) Hematocrit 39.1 % (36.0-47.0) Mean Corpuscular Volume 84 fL (79-100) Mean Corpuscular Hemoglobin 28 pg (25-35) Mean Corpuscular Hemoglobin Concent 33 g/dL (31-37) Red Cell Distribution Width 14.1 % (11.5-14.5) Platelet Count 234 x10^3/uL (140-400) Neutrophils (%) (Auto) 82 % (31-73) Lymphocytes (%) (Auto) 11 % (24-48) Monocytes (%) (Auto) 4 % (0-9) Eosinophils (%) (Auto) 3 % (0-3) Basophils (%) (Auto) 0 % (0-3) Neutrophils # (Auto) 5.9 x10^3uL (1.8-7.7) Lymphocytes # (Auto) 0.8 x10^3/uL (1.0-4.8) Monocytes # (Auto) 0.3 x10^3/uL (0.0-1.1) Eosinophils # (Auto) 0.2 x10^3/uL (0.0-0.7) Basophils # (Auto) 0.0 x10^3/uL (0.0-0.2) Sodium Level 140 mmol/L (136-145) Potassium Level 3.8 mmol/L (3.5-5.1) Chloride Level 105 mmol/L (98-107) Carbon Dioxide Level 23 mmol/L (21-32) Anion Gap 12 (6-14) Blood Urea Nitrogen 20 mg/dL (7-20) Creatinine 0.9 mg/dL (0.6-1.0) Estimated GFR (Cockcroft-Gault) 78.3 BUN/Creatinine Ratio 22 (6-20) Glucose Level 84 mg/dL (70-99) Calcium Level 8.8 mg/dL (8.5-10.1) Total Bilirubin 0.6 mg/dL (0.2-1.0) Direct Bilirubin 0.2 mg/dL (0.0-0.2) Aspartate Amino Transf (AST/SGOT) 39 U/L (15-37) Alanine Aminotransferase (ALT/SGPT) 44 U/L (14-59) Alkaline Phosphatase 97 U/L (46-116) Total Protein 7.2 g/dL (6.4-8.2) Albumin 3.7 g/dL (3.4-5.0) Albumin/Globulin Ratio 1.1 (1.0-1.7) Lipase 113 U/L (73-393) Serum Test, Qualitative Negative (NEG) Urine Collection Type Unknown Urine Color Yellow Urine Clarity Clear Urine pH 6.0 Urine Specific [place] >=1.030 Urine Protein Negative mg/dL (NEG-TRACE) Urine Glucose (UA) Negative mg/dL (NEG) Urine Ketones (Stick) 15 mg/dL (NEG) Urine Blood Negative (NEG) Urine Nitrite Negative (NEG) Urine Bilirubin Small (NEG) Urine Urobilinogen Dipstick 0.2 mg/dL (0.2 mg/dL) Urine Leukocyte Esterase Negative (NEG) Urine RBC 0 /HPF (0-2) Urine WBC Rare /HPF (0-4) Urine Squamous Epithelial Cells Few /LPF Urine Bacteria 0 /HPF (0-FEW) Urine Mucus Slight /LPF Urine Opiates Screen Neg (NEG) Urine Methadone Screen Neg (NEG) Urine Barbiturates Neg (NEG) Urine Phencyclidine Screen Neg (NEG) Urine Amphetamine/Methamphetamine Neg (NEG) Urine Benzodiazepines Screen Neg (NEG) Urine Cocaine Screen Neg (NEG) Urine Cannabinoids Screen Pos (NEG) Urine Ethyl Alcohol Neg (NEG) Laboratory Tests Test 10/07/18 15:29 10/07/18 16:10 White Blood Count 7.2 x10^3/uL (4.0-11.0) Red Blood Count 4.65 x10^6/uL (3.50-5.40) Hemoglobin 13.1 g/dL (12.0-15.5) Hematocrit 39.1 % (36.0-47.0) Mean Corpuscular Volume 84 fL (79-100) Mean Corpuscular Hemoglobin 28 pg (25-35) Mean Corpuscular Hemoglobin Concent 33 g/dL (31-37) Red Cell Distribution Width 14.1 % (11.5-14.5) Platelet Count 234 x10^3/uL (140-400) Neutrophils (%) (Auto) 82 % (31-73) Lymphocytes (%) (Auto) 11 % (24-48) Monocytes (%) (Auto) 4 % (0-9) Eosinophils (%) (Auto) 3 % (0-3) Basophils (%) (Auto) 0 % (0-3) Neutrophils # (Auto) 5.9 x10^3uL (1.8-7.7) Lymphocytes # (Auto) 0.8 x10^3/uL (1.0-4.8) Monocytes # (Auto) 0.3 x10^3/uL (0.0-1.1) Eosinophils # (Auto) 0.2 x10^3/uL (0.0-0.7) Basophils # (Auto) 0.0 x10^3/uL (0.0-0.2) Sodium Level 140 mmol/L (136-145) Potassium Level 3.8 mmol/L (3.5-5.1) Chloride Level 105 mmol/L (98-107) Carbon Dioxide Level 23 mmol/L (21-32) Anion Gap 12 (6-14) Blood Urea Nitrogen 20 mg/dL (7-20) Creatinine 0.9 mg/dL (0.6-1.0) Estimated GFR (Cockcroft-Gault) 78.3 BUN/Creatinine Ratio 22 (6-20) Glucose Level 84 mg/dL (70-99) Calcium Level 8.8 mg/dL (8.5-10.1) Total Bilirubin 0.6 mg/dL (0.2-1.0) Direct Bilirubin 0.2 mg/dL (0.0-0.2) Aspartate Amino Transf (AST/SGOT) 39 U/L (15-37) Alanine Aminotransferase (ALT/SGPT) 44 U/L (14-59) Alkaline Phosphatase 97 U/L (46-116) Total Protein 7.2 g/dL (6.4-8.2) Albumin 3.7 g/dL (3.4-5.0) Albumin/Globulin Ratio 1.1 (1.0-1.7) Lipase 113 U/L (73-393) Serum Test, Qualitative Negative (NEG) Urine Collection Type Unknown Urine Color Yellow Urine Clarity Clear Urine pH 6.0 Urine Specific [place] >=1.030 Urine Protein Negative mg/dL (NEG-TRACE) Urine Glucose (UA) Negative mg/dL (NEG) Urine Ketones (Stick) 15 mg/dL (NEG) Urine Blood Negative (NEG) Urine Nitrite Negative (NEG) Urine Bilirubin Small (NEG) Urine Urobilinogen Dipstick 0.2 mg/dL (0.2 mg/dL) Urine Leukocyte Esterase Negative (NEG) Urine RBC 0 /HPF (0-2) Urine WBC Rare /HPF (0-4) Urine Squamous Epithelial Cells Few /LPF Urine Bacteria 0 /HPF (0-FEW) Urine Mucus Slight /LPF Urine Opiates Screen Neg (NEG) Urine Methadone Screen Neg (NEG) Urine Barbiturates Neg (NEG) Urine Phencyclidine Screen Neg (NEG) Urine Amphetamine/Methamphetamine Neg (NEG) Urine Benzodiazepines Screen Neg (NEG) Urine Cocaine Screen Neg (NEG) Urine Cannabinoids Screen Pos (NEG) Urine Ethyl Alcohol Neg (NEG) Assessment/Plan Assessment/Plan cholecystitis plan lap gabriella today DANIELITO LUDWIG MD 10/08/18 0914: CONSULT Assessment/Plan Assessment/Plan Pt seen and examined by myself: 22 year old female with 2 month history of upper abdominal pain, radiating to RUQ and back; worse over last 4 days with vomiting. ER evaluation consistent with cholecystitis. PMH/PSH/ROS/SH as above; exam: alert, oriented, no distress, no neck masses, lungs clear, heart RR and R, abdomen soft, tender with palpation in RUQ without guarding, ext neg for edema. Labs/Xrays reviewed; A/P) Acute cholecystitis, recommend lap gabriella. The details and risks of surgery were discussed with the patient. She understands and would like to proceed. YOANA MARIE APRN Oct 08, 2018 08:04 DANIELITO LUDWIG MD Oct 08, 2018 09:14
[2018-10-08] MEDS ORDERED: IOHEXOL 300 MG/ML 50 ML VIAL. ONE (08:40)
[2018-10-08] MEDS ORDERED: SURGICEL HEMOSTAT 4X8 EACH. ONE (08:40)
[2018-10-08] MEDS ORDERED: BUPIVAC MPF-EPI 0.5%-1:200000 30 ML VIAL. ONE (08:40)
[2018-10-08] MEDS ORDERED: IV RINGERS,LACTATED 1000ML 1,000 ML IV SCH (08:59)
[2018-10-08] MEDS ORDERED: PROCHLORPERAZINE 10 MG/2 ML VIAL. IV PRN (09:00)
[2018-10-08] MEDS ORDERED: fentaNYL PF VIAL 100 MCG/2 ML VIAL IV PRN (09:00)
[2018-10-08] MEDS ORDERED: LIDOCAINE 1% PF 2 ML VIAL. ID PRN (09:00)
[2018-10-08] MEDS ORDERED: HYDROmorphone 2 MG/ML VIAL IV PRN (09:00)
[2018-10-08] MEDS ORDERED: ONDANSETRON PF 4 MG/2 ML VIAL. IV PRN (09:00)
[2018-10-08] MEDS ORDERED: fentaNYL PF VIAL 250 MCG/5 ML VIAL ONE (10:02)
--- NOTE | 2018-10-08 10:36 | RAD ---
Intraoperative cholangiogram, 10/08/2018: HISTORY: Cholecystectomy 3 spot films from surgery are presented for review. Contrast has been injected into the cystic duct remnant. 0.23 minutes of fluoroscopy time was utilized. There is good flow of contrast into the duodenum at the ampulla. No filling defect is seen in the common duct to suggest a retained calculus. The incompletely opacified intrahepatic ducts are unremarkable. No contrast extravasation is seen. IMPRESSION: No significant abdomen is detected. Electronically signed by: Stanford Rhodes MD (10/08/2018 10:34 AM) [facility]
[2018-10-08] MEDS ORDERED: ONDANSETRON PF 4 MG/2 ML VIAL. ONE (10:38)
[2018-10-08] MEDS ORDERED: DEXAMETHASONE SOD PHOS 4 MG/ML VIAL ONE (10:38)
[2018-10-08] MEDS ORDERED: PROPOFOL 20 ML IV ONE (10:38)
[2018-10-08] MEDS ORDERED: LIDOCAINE 2% PF 5 ML VIAL. ONE (10:38)
[2018-10-08] MEDS ORDERED: SEVOFLURANE 61 TO 120 MINUTES. IH ONE (10:48)
[2018-10-08] MEDS ORDERED: GLYCOPYRROLATE 1 MG/5 ML VIAL. ONE (10:48)
[2018-10-08] MEDS ORDERED: NEOSTIGMINE METHYLSULFATE 5 MG/5 ML SYRINGE. ONE (10:48)
[2018-10-08] MEDS ORDERED: fentaNYL PF VIAL 100 MCG/2 ML VIAL ONE (10:56)
[2018-10-08] MEDS ORDERED: PROCHLORPERAZINE 10 MG/2 ML VIAL. ONE (11:01)
[2018-10-08] MEDS ORDERED: MORPHINE SULFATE 2 MG/ML VIAL. ONE ×2 (11:14→11:33)
[2018-10-08] MEDS: fentaNYL PF VIAL 100 MCG/2 ML VIAL IV PRN ×2 (11:16→11:36)
--- NOTE | 2018-10-08 11:26 | PDOC4 ---
Operative Note Operative Note Operative Note: Preoperative Diagnosis: Calculus cholecystitis Postoperative Diagnosis: Same Procedure: Laparoscopic cholecystectomy with intraoperative cholangiogram Surgeons: Roni Slip Seat Coverer: Fina JUAREZ Anesthesia: Gen. Estimated Blood Loss: 20 mL Specimen: Gallbladder to pathology Drains: None Complications: None Indications: The patient is a 22-year-old female who reported to the hospital with right upper quadrant pain. Her evaluation is consistent with calculus cholecystitis. Surgical treatment was offered by means of a laparoscopic ch olecystectomy. The risks of surgery were discussed which include bleeding, infection, bile duct injury, bile leak, pain, the potential for additional surgeries or procedures. The patient understands and would like to proceed. Description: The patient was taken to the operating room and laid supine on the operating table. General anesthesia was performed. The abdomen was prepped with ChloraPrep and draped in a standard surgical fashion. A small infraumbilical incision was made with a scalpel. The Veress needle was then inserted and a pneumoperitoneum was then created. A 5 mm trocar was then inserted and the laparoscope was introduced. In the upper midabdomen a 5 mm trocar was inserted and in the right upper quadrant two 2.3 mm mini lap graspers were inserted. The gallbladder was retracted cephalad. The cystic duct was dissected free from surrounding tissues. One clip was placed on the duct near the gallbladder junction. An opening was made in the duct and a cholangiocatheter placed within and secured with a clip. Using contrast dye and fluoroscopy an intraoperative cholangiogram was performed that appeared unremarkable. The clip and catheter were then withdrawn. Three clips were placed on the cystic duct and it was divided. The cystic artery was then identified, dissected free, doubly clipped and divided as well. The gallbladder was then mobilized away from the liver with cautery. The umbilical 5 millimeter trocar was exchanged for an 11 millimeter trocar. The gallbladder was then placed in an endoscopic bag and extracted at the umbilical trocar site. The fascia there was closed with an 0 Vicryl suture. All blood and irrigation fluid was suctioned and hemostasis was good. The remaining ports were removed and the pneumoperitoneum was relieved. The skin incisions were injected with half percent Marcaine with epinephrine, and all were closed using 4-0 Monocryl sutur e. Steri-Strips and dressings were then applied. The patient tolerated the procedure well and was sent to the recovery room in stable condition. At the end of the case all counts were correct. DANIELITO LUDWIG MD Oct 08, 2018 11:26
[2018-10-08] MEDS ORDERED: oxyCODONE/APAP 5/325 1 TAB TABLET PO PRN (11:30)
--- NOTE | 2018-10-08 11:34 | NUR ---
SW following for discharge planning. Discussed with RN, pt is from home with family and has a 2 month old baby. Pt having a lap gabriella today. Pt is listed as self pay, SW to provide self pay resources prior to discharge.
[2018-10-08] MEDS: oxyCODONE/APAP 5/325 1 TAB TABLET PO PRN ×3 (13:37→22:11)
[2018-10-09] MEDS: PIPERACILLIN/TAZOBACTAM 3.375 GM in IV NORMAL SALINE 50ML 50 ML IV SCH ×3 (00:13→11:22)
[2018-10-09 03:00] VITALS: BP 171/78
[2018-10-09] MEDS: oxyCODONE/APAP 5/325 1 TAB TABLET PO PRN ×3 (03:23→12:26)
[2018-10-09] MEDS: MORPHINE SULFATE 2 MG/ML VIAL. IV PRN ×2 (03:27→11:22)
[2018-10-09 04:48] VITALS: BP 100/59
[2018-10-09 07:00] VITALS: BP 115/74
--- NOTE | 2018-10-09 08:51 | PDOC ---
YOANA MARIE WEBLOGIC DEVELOPER 10/09/18 0851: SURGICAL PROGRESS NOTE Subjective tolerating diet ambulating pain managed Vital Signs Vital Signs Date Time Temp Pulse Resp B/P (MAP) Pulse Ox O2 Delivery O2 Flow Rate FiO2 10/09/18 08:23 Room Air 10/09/18 07:00 99.0 59 18 115/74 (88) 97 99.0 I&O Intake and Output 10/09/18 07:00 Intake Total 1300 ml Output Total 95 ml Balance 1205 ml Intake IV Total 1300 ml Output Urine Total 75 ml Estimated Blood Loss 20 ml # Voids 3 General: Alert, Oriented X3, Cooperative, No acute distress Abdomen: Soft, Other (lap dressings dry) Labs Laboratory Tests Test 10/07/18 15:29 10/07/18 16:10 White Blood Count 7.2 x10^3/uL (4.0-11.0) Red Blood Count 4.65 x10^6/uL (3.50-5.40) Hemoglobin 13.1 g/dL (12.0-15.5) Hematocrit 39.1 % (36.0-47.0) Mean Corpuscular Volume 84 fL (79-100) Mean Corpuscular Hemoglobin 28 pg (25-35) Mean Corpuscular Hemoglobin Concent 33 g/dL (31-37) Red Cell Distribution Width 14.1 % (11.5-14.5) Platelet Count 234 x10^3/uL (140-400) Neutrophils (%) (Auto) 82 % (31-73) Lymphocytes (%) (Auto) 11 % (24-48) Monocytes (%) (Auto) 4 % (0-9) Eosinophils (%) (Auto) 3 % (0-3) Basophils (%) (Auto) 0 % (0-3) Neutrophils # (Auto) 5.9 x10^3uL (1.8-7.7) Lymphocytes # (Auto) 0.8 x10^3/uL (1.0-4.8) Monocytes # (Auto) 0.3 x10^3/uL (0.0-1.1) Eosinophils # (Auto) 0.2 x10^3/uL (0.0-0.7) Basophils # (Auto) 0.0 x10^3/uL (0.0-0.2) Sodium Level 140 mmol/L (136-145) Potassium Level 3.8 mmol/L (3.5-5.1) Chloride Level 105 mmol/L (98-107) Carbon Dioxide Level 23 mmol/L (21-32) Anion Gap 12 (6-14) Blood Urea Nitrogen 20 mg/dL (7-20) Creatinine 0.9 mg/dL (0.6-1.0) Estimated GFR (Cockcroft-Gault) 78.3 BUN/Creatinine Ratio 22 (6-20) Glucose Level 84 mg/dL (70-99) Calcium Level 8.8 mg/dL (8.5-10.1) Total Bilirubin 0.6 mg/dL (0.2-1.0) Direct Bilirubin 0.2 mg/dL (0.0-0.2) Aspartate Amino Transf (AST/SGOT) 39 U/L (15-37) Alanine Aminotransferase (ALT/SGPT) 44 U/L (14-59) Alkaline Phosphatase 97 U/L (46-116) Total Protein 7.2 g/dL (6.4-8.2) Albumin 3.7 g/dL (3.4-5.0) Albumin/Globulin Ratio 1.1 (1.0-1.7) Lipase 113 U/L (73-393) Serum Test, Qualitative Negative (NEG) Urine Collection Type Unknown Urine Color Yellow Urine Clarity Clear Urine pH 6.0 Urine Specific [place] >=1.030 Urine Protein Negative mg/dL (NEG-TRACE) Urine Glucose (UA) Negative mg/dL (NEG) Urine Ketones (Stick) 15 mg/dL (NEG) Urine Blood Negative (NEG) Urine Nitrite Negative (NEG) Urine Bilirubin Small (NEG) Urine Urobilinogen Dipstick 0.2 mg/dL (0.2 mg/dL) Urine Leukocyte Esterase Negative (NEG) Urine RBC 0 /HPF (0-2) Urine WBC Rare /HPF (0-4) Urine Squamous Epithelial Cells Few /LPF Urine Bacteria 0 /HPF (0-FEW) Urine Mucus Slight /LPF Urine Opiates Screen Neg (NEG) Urine Methadone Screen Neg (NEG) Urine Barbiturates Neg (NEG) Urine Phencyclidine Screen Neg (NEG) Urine Amphetamine/Methamphetamine Neg (NEG) Urine Benzodiazepines Screen Neg (NEG) Urine Cocaine Screen Neg (NEG) Urine Cannabinoids Screen Pos (NEG) Urine Ethyl Alcohol Neg (NEG) Problem List Problems Medical Problems: (1) Cholecystitis Status: Acute (2) Cholelithiases Status: Acute Assessment/Plan s/p gabriella ok to fl home FU 2 weeks script on chart DANIELITO LUDWIG MD 10/09/18 1117: SURGICAL PROGRESS NOTE Assessment/Plan Agree with above YOANA MARIE APRN Oct 09, 2018 08:51 DANIELITO LUDWIG MD Oct 09, 2018 11:17
[2018-10-09 11:00] VITALS: BP 119/81
[2018-10-09] MEDS ORDERED: OXYC1TAB15 PO (11:29)
--- NOTE | 2018-10-09 11:31 | DISCH ---
DISCHARGE INSTRUCTIONS Condition on Discharge Condition on Discharge: Stable Activity After Discharge Activity Instructions for Disc: Activity as tolerated Lifting Instructions after Dis: No heavy lifting (no lifting > 20 lbs x 2 weeks ) Diet after Discharge Diet after Discharge: Regular Wound Incision Care Wound/Incision Care: May get incision wet, No wound care needed Other wound/incision instructi: ok to shower, no tub baths x 2 weeks Contacting the after DC Call your doctor for: Concerns you may have Follow-Up Follow up with: Dr Tamayo 2 weeks, call to schedule [phone] YOANA MARIE APRN Oct 09, 2018 11:31
--- NOTE | 2018-10-09 13:31 | NUR ---
SW following. Discussed with RN, pt being discharged home today with self care. SW met with pt to provide self pay resources, pt denied any further SW needs. SW encouraged pt to complete the medicaid application for parent of a minor in order to get insurance for future healthcare needs.
--- NOTE | 2018-10-09 13:42 | NUR ---
Client discharged at approximately 1238. Client A&Ox4. Client VSS, states she is still in pain, denies n/v. Client educated on pain medication and hand out given. Client verbalized understanding of not driving/ while on pain medications. Client was escorted to exit by staff.
--- NOTE | 2018-10-09 21:26 | HP ---
ADMIT DATE: 10/07/2018 CHIEF COMPLAINT AND HISTORY OF PRESENT ILLNESS: This is a 22-year-old white female admitted through the Emergency Room with right upper quadrant pain coming off and on for 2 months. She is 3 months status post delivery of a child. She has been treated with Prilosec without improvement in the pain. She had been vomiting 8 times at least in the last 24 hours and was felt on my workup in the Emergency Room to have cholecystitis with gallbladder wall thickening and enhancement suspicious for cholecystitis. I was not notified of the admission as she was erroneously assigned to another physician. Actually, first time that I was aware of her being here was on the and thus the reason for the delay in the dictation. PAST MEDICAL HISTORY: Remarkable for anxiety, depression, prior miscarriage. She has ADD or ADHD. PAST SURGICAL HISTORY: She has had prior right hip surgery and lymph node, the left neck surgery. MEDICATIONS: Were brought with the patient, listed on the computer and have been addressed. ALLERGIES: SHE IS ALLERGIC TO NAPROSYN. SOCIAL HISTORY: She is a mother of 2 small children. Does not abuse drugs, alcohol or tobacco. FAMILY HISTORY: Noncontributory. REVIEW OF SYSTEMS: As that as mentioned above. PHYSICAL EXAMINATION: GENERAL: She is well-developed, well-nourished white female, in no acute distress. She is status post cholecystectomy. VITAL SIGNS: Stable. She is afebrile. CHEST: Clear to auscultation and percussion. HEART: Regular rate and rhythm without S3, S4, or murmur. ABDOMEN: Soft, minimal postop tenderness, no hepatosplenomegaly or mass. EXTREMITIES: Without cyanosis, clubbing or edema. NEUROLOGIC: She is intact. IMPRESSION: Acute cholecystitis, status post cholecystectomy, doing well at this point in time. PLAN: We will await surgery's opinion, but likely can discharge later today. SELAM LING MD DR: KELSY/josselin JOB#: [id number] / [id number]
--- NOTE | 2018-10-10 09:07 | PATHOLOGY ---
[facility] Accession Number: [id number] . 01 Material submitted: . gallbladder - GALLBLADDER . 02 Diagnosis: Gallbladder, laparoscopic cholecystectomy: - Cholelithiasis. - Chronic cholecystitis. - Reactive changes of gallbladder neck lymph node. LBQ/10/09/2018 . 02 Comment: There is no evidence of malignancy. (JPM/db; 10/09/2018) . 02 Electronically signed: . Stephon Fontanez MD, Pathologist NPI- [id number] . 01 Gross description: . The specimen is received in formalin, labeled "Arsalan, Nikki, gallbladder", is an intact gallbladder measuring 8.0 cm in length and 2.7 cm in maximum diameter with a smooth, and purple ballard serosa. A 0.5 x 0.5 x 0.3 cm soft lymph node is identified in the region of the gallbladder neck. The cystic duct is patent. The gallbladder lumen contains yellow-green viscous bile and multiple round to irregular, green-yellow calculi measuring 3.0 x 3.0 x 0.8 cm in aggregate. The mucosa is green and granular with no cholesterolosis. The wall is 0.1 cm in average thickness. Checker Cashier tissue is submitted in A1. ([facility]; 10/08/2018) SHS/SHS . 02 Pathologist provided ICD-10: K80.10 . 02 CPT . 801996 Specimen Comment: A courtesy copy of this report has been sent to Specimen Comment: [phone], , , . Specimen Comment: Report sent to ,DR VICENTE,DR LING / DR MCKEON Performed at: [address] [place] [address] [address] [facility] [address], [place], [place] [id number] MD Seamus Maya MD Phone: [phone] Performed at: [address] [id number] MD Stephon Fontanez MD Phone: [phone]
== END 2018-10-09 12:58 | disposition home or self-care (01) | DRG 419 ==
LOC: ER 14:35 → 4 NORTH 17:21
PROVIDERS: ADMIT Family Medicine; ATTEND Family Medicine
PROC: BF101ZZ Fluoroscopy of Bile Ducts using Low Osmolar Contrast (ICD-10-PCS; 2018-10-08)
PROC: 0FT44ZZ Resection of Gallbladder, Percutaneous Endoscopic Approach (ICD-10-PCS; principal; 2018-10-08 10:30)
DX: K80.00 Calculus of gallbladder with acute cholecystitis without obstruction (principal); F41.9 Anxiety disorder, unspecified; F32.9 Major depressive disorder, single episode, unspecified; F90.9 Attention-deficit hyperactivity disorder, unspecified type; K21.9 Gastro-esophageal reflux disease without esophagitis; Z88.6 Allergy status to analgesic agent
CPT/HCPCS: 36415; 74177; 74300; 80053; 80076; 80307; 81001; 83690; 84703; 85025; 88304; 96361; 96365; 96375; A7015; J0696; J0780; J1100; J2001; J2270; J2405; J2543; J2704; J2710; J3010; J3490; J7030; J7120; Q9967; 99285-25

== ENCOUNTER 2019-10-27 16:31 | Emergency (ER) | payer MEDICAID, OTHER ==
[~2019-10-27] VITALS: Ht 162.6 cm; Wt 93.1 kg
[~2019-10-27 16:31] MED LIST changes: +DEXT20TA2 PO; +OXYC1TAB15 PO
[2019-10-27 19:10] VITALS: BP 124/71
[2019-10-27 19:23] LABS: BILIRUBIN,URINE SMALL (NEG); CLARITY,URINE CLOUDY; COLOR,URINE AMBER; NITRITE,URINE NEGATIVE (NEG); PH,URINE 7.5 (<5.0-8.0); PROTEIN,URINE NEGATIVE (NEG-TRACE)
[2019-10-27 19:29] LABS: BACTERIA,URINE FEW /HPF (0-FEW); RBC,URINE 0 /HPF (0-2); SQUAMOUS EPITHELIAL CELL,UR MANY /LPF; WBC,URINE 20-40 /HPF (0-4)
--- NOTE | 2019-10-27 19:34 | PHYS DOC ---
Past Medical History Past Medical History: Anxiety, Depression, Other Additional Past Medical Histor: hypoglycemic, miscarrage 2 yrs ago, ADHD (JOYCE BAIG APRN) Past Surgical History: Other Additional Past Surgical Histo: right hip, lymph nodes left neck (JOYCE BAIG APRN) Smoking Status: Current Some Day Smoker Alcohol Use: Occasionally Drug Use: None (JOYCE BAIG APRN) General Adult EDM: Chief Complaint: ANXIETY/PANIC ATTACK HPI: HPI: Patient is a 23 year old female who presents with right lower flank and abdomen cramping that started at approximately noon yesterday. Patient states she is 36 weeks with a due date of December 01, 2019 and a last menstrual period of sometime last January. Patient states this is her third and she has 2 living children. Patient states she has had no problems with her first 2 pregnancies nor this current . Patient states that this cramping has made her anxious to the point to where she hit herself on her right cheek trying to relieve her anxiety. Patient denies HI SI. Patient denies fever, chills, vision changes, nasal congestion, or sore throat. Patient denies any current chest pain or peripheral edema. Patient denies any nausea vomiting diarrhea or bloody stools. Patient denies any problems urinating. Patient denies any back pain or joint pain at this time. Patient denies any skin rashes, headaches, focal weaknesses, or sensory changes. Patient denies any changes in her eating habits or urinary habits. Patient denies any swelling of her glands. Patient denies any depression. Patient is concerned that that these cramps are labor and this has increased her anxiety. Patient denies any leakage of fluids or vaginal discharge. Patient denies any STI concerns. (JOYCE BAIG APRN) Review of Systems: Review of Systems: Constitutional: Denies fever or chills. Eyes: Denies change in visual acuity. HENT: Denies nasal congestion or sore throat. Respiratory: Denies cough or shortness of breath. Cardiovascular: Denies chest pain or edema. GI: Denies abdominal pain, nausea, vomiting, bloody stools or diarrhea. : Denies dysuria. Denies leakage of fluids. Denies vaginal discharge. Denies STI concerns. Musculoskeletal: Denies back pain or joint pain. Integument: Denies rash. Neurologic: Denies headache, focal weakness or sensory changes. Endocrine: Denies polyuria or polydipsia. Lymphatic: Denies swollen glands. Psychiatric: Denies depression or anxiety. (JOYCE BAIG APRN) Heart Score: Risk Factors: Risk Factors: DM, Current or recent (<one month) smoker, HTN, HLP, family history of CAD, obesity. Risk Scores: Score 0 - 3: 2.5% MACE over next 6 weeks - Discharge Home Score 4 - 6: 20.3% MACE over next 6 weeks - Admit for Clinical Observation Score 7 - 10: 72.7% MACE over next 6 weeks - Early Invasive Strategies (JOYCE BAIG APRN) Family History: Family History: Patient denies any significant family history related to this ER visit today. (JOYCE BAIG APRN) Current Medications: Patient reports taking a vitamin. (JOYCE BAIG APRN) Allergies: Allergies: Allergies Coded Allergies Type Severity Reaction Last Updated Verified naproxen Allergy Intermediate 04/17/16 Yes (JOYCE BAIG APRN) Physical Exam: PE: Constitutional: Well developed, well nourished, no acute distress, non-toxic appearance however does appear anxious. HENT: Normocephalic, atraumatic, bilateral external ears normal, oropharynx moist, no oral exudates, nose normal. Eyes: PERRLA, EOMI, conjunctiva normal, no discharge. Neck: Normal range of motion, no tenderness, supple, no stridor. Cardiovascular:Heart rate regular rhythm, no murmur Lungs & Thorax: Bilateral breath sounds clear to auscultation Abdomen: Bowel sounds normal, soft, tenderness to the right flank and right lower quadrant to palpation, no pulsatile masses, fundus approximately 5 cm above umbilicus. Skin: Warm, dry, no erythema, no rash. Contusion with tenderness to palpation to the right zygoma area without abrasion, skin intact. Back: No tenderness, no CVA tenderness. Extremities: No tenderness, no cyanosis, no clubbing, ROM intact, no edema. Neurologic: Alert and oriented X 3, normal motor function, normal sensory function, no focal deficits noted. Psychologic: Affect normal, judgement normal, mood normal. (JOYCE BAIG APRN) Current Patient Data: Labs: Laboratory Tests Test 10/27/19 19:15 10/27/19 19:23 Urine Collection Type Unknown Urine Color Abigail Urine Clarity Cloudy Urine pH 7.5 (<5.0-8.0) Urine Specific [place] 1.025 (1.000-1.030) Urine Protein Negative mg/dL (NEG-TRACE) Urine Glucose (UA) Negative mg/dL (NEG) Urine Ketones (Stick) 40 mg/dL (NEG) Urine Blood Negative (NEG) Urine Nitrite Negative (NEG) Urine Bilirubin Small (NEG) Urine Urobilinogen Dipstick 1.0 mg/dL (0.2 mg/dL) Urine Leukocyte Esterase Large (NEG) Urine RBC 0 /HPF (0-2) Urine WBC 20-40 /HPF (0-4) Urine Squamous Epithelial Cells Many /LPF Urine Bacteria Few /HPF (0-FEW) Urine Mucus Marked /LPF POC Urine HCG, Qualitative Hcg positive (Negative) (JOYCE BAIG APRN) EKG: EKG: [] (JOYCE BAIG APRN) Radiology/Procedures: Radiology/Procedures: [] (JOYCE BAIG APRN) Course & Med Decision Making: Course & Med Decision Making Pertinent Labs and Imaging studies reviewed. (See chart for details) 23-year-old female patient presents to the emergency department complaining of right flank and right low abdomen pain started yesterday at approximately noon. Patient states she is 36 weeks and is concerned that these are contractions which made her anxious. Patient states this anxiety made her hit her face with her palm of her hand to the right zygoma once. Patient states that she has a history of anxiety and has not taken her Xanax related to her . Patient is a 3 para 2. Patient denies any problems with this or her previous 2 pregnancies. Patient states she took her previous 2 pregnancies full-term. Patient states she sees her OB Dr. Abbott and has a appointment for next Sunday. Patient states she takes a vitamin at home. Patient denies taking any other medications prescription or dehu-rrr-hooupod. Patient states she can feel her baby move. Patient denies any leakage of fluids. Patient denies any vaginal discharge or STI concerns. Patient denies any HI or SI. Related to the patient being 36 weeks and having right lower flank and right lower abdomen cramping concerning for labor, labor and delivery floor was contacted and patient was discharged from this emergency department to go straight to labor and delivery for monitoring. Reviewed with patient need to go straight to labor and delivery for monitoring and that she may return to the emergency department if she is discharged from the labor and delivery unit for any further evaluation. Patient's right zygoma was palpated showing a slight contusion, however there was no crepitus felt. Patient agreed to be discharged and go straight to labor and delivery unit for monitoring and stated that she understood that may return at any time if she was not admitted. ER nursing spoke with labor and delivery charge nurse and patient was taken to the labor and delivery unit for monitoring via wheelchair. (JOYCE BAIG APRN) Dragon Disclaimer: Dragon Disclaimer: This electronic medical record was generated, in whole or in part, using a voice recognition dictation system. (JOYCE BAIG APRN) Departure Departure Impression: Primary Impression: Abdominal pain during Qualified Codes: O26.893 - Other specified related conditions, third trimester; R10.9 - Unspecified abdominal pain Additional Impressions: Anxiety Facial contusion Qualified Codes: S00.83XA - Contusion of other part of head, initial encounter Disposition: HOME, SELF-CARE Condition: STABLE Referrals: NO PCP (PCP) Patient Instructions: Abdominal Pain During , Anxiety and Panic Attacks, Chest Contusion, [id number] Additional Instructions: Please go straight to the Labor and Deliver unit for monitoring after your discharge from this ER. Keep your appointment with your OB doctor Scar this coming Sunday. Justicifation of Admission Dx: Justifications for Admission: Justification of Admission Dx: N/A (JOYCE BAIG APRN) Attending Signature Attending Signature I have participated in the care of this patient and I have reviewed and agree with all pertinent clinical information above including history, exam, and recommendations. (VERONIQUE GILMORE DO) JOYCE BAIG APRN Oct 27, 2019 19:34 VERONIQUE GILMORE DO Oct 28, 2019 03:07
== END 2019-10-27 19:55 | disposition home or self-care (01) ==
LOC: ER 16:31
DX: O9A.213 Injury, poisoning and certain other consequences of external causes complicating pregnancy, third trimester (principal); S00.83XA Contusion of other part of head, initial encounter; R10.31 Right lower quadrant pain; O99.333 Smoking (tobacco) complicating pregnancy, third trimester; Z3A.36 36 weeks gestation of pregnancy; Z88.5 Allergy status to narcotic agent; X58.XXXA Exposure to other specified factors, initial encounter; Y93.89 Activity, other specified; Y92.89 Other specified places as the place of occurrence of the external cause; Y99.8 Other external cause status
CPT/HCPCS: 81001; 81025; 87086; 99283

== ENCOUNTER 2019-10-27 19:41 | Observation (INO) | payer OTHER ==
[2019-10-27] MEDS ORDERED: ACETAMINOPHEN 325 MG TABLET. PO PRN (19:45)
[2019-10-27] MEDS ORDERED: diphenhydrAMINE HCL 25 MG CAPSULE PO PRN (19:45)
[2019-10-27] MEDS ORDERED: IV RINGERS,LACTATED 1000ML 1,000 ML IV PRN (20:00)
[2019-10-27 20:32] LABS: AMPHETAMINE/METHAMPHETAMINE NEG (NEG); BARBITURATES NEG (NEG); BENZODIAZEPINES NEG (NEG); CANNABINOIDS POS (NEG); COCAINE NEG (NEG); METHADONE NEG (NEG); OPIATES NEG (NEG); PHENCYCLIDINE NEG (NEG)
[2019-10-27] MEDS ORDERED: hydrOXYzine 25 MG TABLET PO PRN (21:30)
[2019-10-27] MEDS ORDERED: ONDANSETRON ODT 4 MG TAB.RAPDIS. PO ONE (22:00)
== END 2019-10-27 21:45 | disposition home or self-care (01) ==
LOC: 3 SO LND 19:41
PROVIDERS: ADMIT Obstetrics & Gynecology; ATTEND Obstetrics & Gynecology
DX: O9A.213 Injury, poisoning and certain other consequences of external causes complicating pregnancy, third trimester (principal); O99.343 Other mental disorders complicating pregnancy, third trimester; S00.83XA Contusion of other part of head, initial encounter; R10.30 Lower abdominal pain, unspecified; F41.9 Anxiety disorder, unspecified; F32.9 Major depressive disorder, single episode, unspecified; Z3A.36 36 weeks gestation of pregnancy; X83.8XXA Intentional self-harm by other specified means, initial encounter; Y93.89 Activity, other specified; Y92.89 Other specified places as the place of occurrence of the external cause; Y99.8 Other external cause status
CPT/HCPCS: 80307; G0378; G0379